=== PATIENT | male | born 1970 | race Caucasian/White ===

== ENCOUNTER 2018-10-11 12:23 | Emergency (ER) | payer SELFPAY ==
--- NOTE | 2018-10-11 13:59 | RAD REPORT ---
EXAM DESCRIPTION: CT - Head Brain Wo Cont - 10/11/2018 1:41 pm CLINICAL HISTORY: Weakness, dizziness COMPARISON: None. TECHNIQUE: Axial 5 mm thick images of the head were obtained without IV contrast. All CT scans are performed using dose optimization technique as appropriate and may include automated exposure control or mA/KV adjustment according to patient size. FINDINGS: No intracranial hemorrhage, mass, edema or shift of mid-line structures. No acute infarcti on changes seen. No abnormal extra-axial fluid collections. Ventricles are normal. Mastoid air cells and visualized portions of the paranasal sinuses are clear. No acute bony findings. IMPRESSION: Negative non-contrast CT head examination.
[2018-10-11] MEDS ORDERED: ACETAMINOPHEN 500 MG TAB ONE (14:00)
[2018-10-11 14:07] LABS: Absolute Lymphocytes (CBC) 0.9 K/uL (0.7-4.9); Absolute Monocytes 0.3 K/uL (0.1-1.3); Absolute Neutrophil 2.6 K/uL (1.8-8.0); Basophils % 0.9 % (0-1.3); Eosinophils % 2.6 % (0-4.4); MPV 9.8 fL (7.6-11.3); Monocytes % 8.5 % (3.3-12.3); RBC Red Blood Cell Count 4.17 M/uL (4.33-5.43)
--- NOTE | 2018-10-11 14:07 | RAD REPORT ---
EXAM DESCRIPTION: RAD - Chest Single View - 10/11/2018 1:55 pm CLINICAL HISTORY: Chest pain, shortness of breath COMPARISON: February 2012 TECHNIQUE: AP portable chest image was obtained 1352 hours . FINDINGS: Lung volumes are low. Patient has a mild prominence of the interstitial pattern throughout both lung schroeder. This is not substantially different from comparison. A small approximately 7 mm nodule is present in the right midlung field not seen on the prior study. This is most likely a granuloma. There is also a vague nodule lateral left lower lung field 8-10 mm i n size superimposed on the posterior left seventh rib. Heart and vasculature are normal. No measurable pleural effusion and no pneumothorax. No acute bony a bnormality seen. No acute aortic findings suspected. IMPRESSION: No failure, pulmonary edema or acute lung parenchymal process. Areas of nodularity in each lung field new from remote 2012 imaging. Follow-up chest imaging in 4-6 months recommended to monitor these areas of nodularity. If the patien t is not a good follow-up candidate, CT chest imaging could be performed.
[2018-10-11 14:09] LABS: Protime INR 1.19
--- NOTE | 2018-10-11 14:20 | EKG ---
Test Date: 2018-10-11 Test Time: 12:43:46 Piece Dyeing Machine Tender: NEVAEH MEASUREMENT RESULTS: Intervals: Rate: 61 DE: 142 QRSD: 106 QT: 432 QTc: 434 [place]: P: 41 DE: 142 QRS: 62 T: 34 INTERPRETIVE STATEMENTS: Normal sinus rhythm Normal ECG Compared to ECG 03/11/2012 15:10:00 No significant changes Electronically Signed On 10-11-18 14:19:03 CDT by Brent Hernandez
[2018-10-11 14:24] LABS: ALT/SGPT 149 U/L (12-78); AST/SGOT 177 U/L (15-37); Albumin 3.6 g/dL (3.4-5.0); Alkaline Phosphatase 104 U/L (45-117); BUN Blood Urea Nitrogen 13 mg/dL (7-18); Bicarbonate 27 mmol/L (21-32); Bilirubin Direct 0.3 mg/dL (0-0.2); Glucose Level 89 mg/dL (74-106); Magnesium 2.1 mg/dL (1.8-2.4); Protein, Total 7.7 g/dL (6.4-8.2); Sodium Level 144 mmol/L (136-145); Troponin (Emerg Dept Use Only) < 0.02 ng/mL (0.0-0.045)
--- NOTE | 2018-10-11 15:45 | ER ---
Nurse's Notes [facility] Name: Dennis Nova Age: 48 yrs Sex: Male : 1970 Arrival Date: 10/11/2018 Time: 12:37 Bed 13 Private MD: Diagnosis: Chest pain, unspecified;Dizziness and giddiness;Suicidal ideations Presentation: 10/11 12:37 Presenting complaint: EMS states: He ran from and when caught he was c/o chest pain jl7 and dizziness that began 4 days ago. Pt reported he wants to hurt himself starting 30 minutes prior to EMS arrival. Transition of care: patient was not received from another setting of care. Onset of symptoms was October 06, 2018. Risk Assessment: Do you want to hurt yourself or someone else? Patient reports desire/thoughts of hurting themselves or someone else. Provider notified. Other: PD at bedside. Initial Sepsis Screen: Does the patient meet any 2 criteria? No. Patient's initial sepsis screen is negative. Does the patient have a suspected source of infection? No. Patient's initial sepsis screen is negative. Care prior to arrival: Medication(s) given: ASA, 81 mg, x 4. 12:37 Method Of Arrival: EMS: [facility] jl7 12:37 Acuity: VINH 3 jl7 Triage Assessment: 12:43 General: Appears in no apparent distress. uncomfortable, Behavior is cooperative, jl7 anxious. Pain: Complains of pain in anterior aspect of left upper chest Pain does not radiate. Pain currently is 7 out of 10 on a pain scale. Quality of pain is described as aching, Pain began 2-3 days ago. Is continuous. EENT: No signs and/or symptoms were reported regarding the EENT system. Neuro: Level of Consciousness is awake, alert, obeys commands, Oriented to person, place, time, situation, Moves all extremities. Full function Speech is normal, Facial symmetry appears normal, Pupils are constricted, Reports dizziness, since x 4days. Cardiovascular: Patient's skin is warm and dry. Respiratory: Airway is patent Respiratory effort is even, unlabored, Respiratory pattern is regular, symmetrical. Derm: Skin is pink, warm \T\ dry. Historical: - Allergies: 12:43 No Known Allergies; jl7 - Home Meds: 12:43 None [Active]; jl7 - PMHx: 12:43 Hepatitis; jl7 - PSHx: 12:43 None; jl7 - Immunization history:: Adult Immunizations unknown. - Social history:: Smoking status: Patient uses tobacco products, smokes one-half pack cigarettes per day, Patient uses street drugs, Methamphetamine (Meth). - Ebola Screening: : No symptoms or risks identified at this time. - Family history:: not pertinent. - Hospitalizations: : No recent hospitalization is reported. Screenin:00 Abuse screen: Denies threats or abuse. Denies injuries from another. Nutritional jl7 screening: No deficits noted. Tuberculosis screening: No symptoms or risk factors identified. Fall Risk IV access (20 points). Assessment: 13:00 General: See triage assessment. jl7 14:00 Reassessment: Patient appears in no apparent distress at this time. Patient and/or jl7 family updated on plan of care and expected duration. Pain level reassessed. Patient is alert, oriented x 3, equal unlabored respirations, skin warm/dry/pink. 15:00 Reassessment: Patient appears in no apparent distress at this time. Patient and/or jl7 family updated on plan of care and expected duration. Pain level reassessed. Pt laying in bed with eyes closed, respirations even and unlabored, no signs of distress noted at this time. PD remains at bedside. Vital Signs: 12:43 BP 134 / 83; Pulse 75; Resp 18 S; Temp 97.6(O); Pulse Ox 99% on R/A; Weight 79.38 kg jl7 (R); Pain 7/10; 14:00 BP 138 / 91; Pulse 55; Resp 16 S; Pulse Ox 100% on R/A; jl7 15:38 BP 129 / 85; Pulse 57; Resp 19 S; Pulse Ox 99% on R/A; jl7 ED Course: 12:37 Patient arrived in ED. jl7 12:42 Triage completed. jl7 12:43 Arm band placed on right wrist. jl7 12:48 Huan Jarvis MD is Attending Physician. ny 13:00 Patient has correct armband on for positive identification. Bed in low position. Call jl7 light in reach. Side rails up X2. Security at bedside. alarm security or surveillance monitor on. Pulse ox on. NIBP on. Warm blanket given. 13:00 Maintain EMS IV. Dressing intact. Good blood return noted. Site clean \T\ dry. Gauge \T\ jl 7 site: 18 right AC. Patient maintains SpO2 saturation greater than 95% on room air. 13:02 EKG done, by optical lab technician. reviewed by Huan Jarvis MD. at1 13:36 Fabian Payne RN is Primary Nurse. jl7 13:41 CT Head Brain wo Cont In Process Unspecified. EDMS 13:55 X-ray completed. Portable x-ray completed in exam room. Patient tolerated procedure ls3 well. 13:56 XRAY Chest (1 view) In Process Unspecified. EDMS 15:44 Brent Hernandez MD is Referral Physician. wa 16:07 No provider procedures requiring assistance completed. IV discontinued, intact, jl7 bleeding controlled, No redness/swelling at site. Pressure dressing applied. Administered Medications: 13:40 Drug: Tylenol 1000 mg Route: PO; jl7 15:44 Follow up: Response: No adverse reaction; Pain is decreased jl7 Outcome: 15:44 Discharge ordered by . wa 16:07 Discharged to home ambulatory. jl7 16:07 Condition: stable 16:07 Discharge instructions given to patient, police, Instructed on discharge instructions, follow up and referral plans. Demonstrated understanding of instructions, follow-up care. 16:10 Patient left the ED. jl7 Signatures: Dispatcher [employer] EDEliana Fox, lift slab operator EKG Tat1 Fabian Payne RN RN jl7 Huan Jarvis MD MD ny Avril Caballero ls3
--- NOTE | 2018-10-11 15:45 | EDPHYS ---
Physician Documentation [facility] Name: Dennis Nova Age: 48 yrs Sex: Male : 1970 Arrival Date: 10/11/2018 Time: 12:37 Bed 13 Private MD: ED Physician Huan Jarvis HPI: 10/11 15:30 This 48 yrs old Male presents to ER via EMS with complaints of Chest Pain > wa 30 y/o. 15:30 The patient or guardian reports chest pain that is located primarily in the substernal wa area. Onset: 5 day(s) ago. The pain does not radiate. Associated signs and symptoms: Pertinent positives: dizziness. The chest pain is described as sticky pins and needles. Duration: The patient or guardian reports a single episode, that is still ongoing. Modifying factors: The symptoms are alleviated by nothing. the symptoms are aggravated by nothing. Severity of pain: At its worst the pain was moderate in the emergency department the pain is unchanged. EMS care prior to arrival includes: none. The patient has not experienced similar symptoms in the past. The patient has not recently seen a physician. pt was chased and arrested by EMS. pt c/o above at time of arrest. . Historical: - Allergies: 12:43 No Known Allergies; jl7 - Home Meds: 12:43 None [Active]; jl7 - PMHx: 12:43 Hepatitis; jl7 - PSHx: 12:43 None; jl7 - Immunization history:: Adult Immunizations unknown. - Social history:: Smoking status: Patient uses tobacco products, smokes one-half pack cigarettes per day, Patient uses street drugs, Methamphetamine (Meth). - Ebola Screening: : No symptoms or risks identified at this time. - Family history:: not pertinent. - Hospitalizations: : No recent hospitalization is reported. ROS: 15:34 Constitutional: Negative for fever, chills, and weight loss, Eyes: Negative for injury, wa pain, redness, and discharge, ENT: Negative for injury, pain, and discharge, Neck: Negative for injury, pain, and swelling, Respiratory: Negative for shortness of breath, cough, wheezing, and pleuritic chest pain, Abdomen/GI: Negative for abdominal pain, nausea, vomiting, diarrhea, and constipation, Back: Negative for injury and pain, : Negative for injury, bleeding, discharge, and swelling, MS/Extremity: Negative for injury and deformity, Skin: Negative for injury, rash, and discoloration. 15:34 Cardiovascular: Positive for chest pain, Negative for edema, orthopnea, palpitations, paroxysmal nocturnal dyspnea. 15:34 Neuro: Positive for dizziness, Negative for altered mental status, headache. 15:34 Psych: Positive for suicidal ideation. 15:34 All other systems are negative. Exam: 15:35 Constitutional: This is a well developed, well nourished patient who is awake, alert, wa and in no acute distress. Eyes: Pupils equal round and reactive to light, extra-ocular motions intact. Lids and lashes normal. Conjunctiva and sclera are non-icteric and not injected. Cornea within normal limits. Periorbital areas with no swelling, redness, or edema. ENT: Nares patent. No nasal discharge, no septal abnormalities noted. Tympanic membranes are normal and external auditory canals are clear. Oropharynx with no redness, swelling, or masses, exudates, or evidence of obstruction, uvula midline. Mucous membranes moist. Neck: Trachea midline, no thyromegaly or masses palpated, and no cervical lymphadenopathy. Supple, full range of motion without nuchal rigidity, or vertebral point tenderness. No Meningismus. Chest/axilla: Normal chest wall appearance and motion. Nontender with no deformity. No lesions are appreciated. Cardiovascular: Regular rate and rhythm with a normal S1 and S2. No gallops, murmurs, or rubs. Normal PMI, no JVD. No pulse deficits. Respiratory: Lungs have equal breath sounds bilaterally, clear to auscultation and percussion. No rales, rhonchi or wheezes noted. No increased work of breathing, no retractions or nasal flaring. Abdomen/GI: Soft, non-tender, with normal bowel sounds. No distension or tympany. No guarding or rebound. No evidence of tenderness throughout. Back: No spinal tenderness. No costovertebral tenderness. Full range of motion. Skin: Warm, dry with normal turgor. Normal color with no rashes, no lesions, and no evidence of cellulitis. MS/ Extremity: Pulses equal, no cyanosis. Neurovascular intact. Full, normal range of motion. Neuro: Awake and alert, GCS 15, oriented to person, place, time, and situation. Cranial nerves II-XII grossly intact. Motor strength 5/5 in all extremities. Sensory grossly intact. Cerebellar exam normal. Normal gait. 15:35 Head/face: Noted is abrasion(s), that are mild, of the outer aspect of right eyebrow. Vital Signs: 12:43 BP 134 / 83; Pulse 75; Resp 18 S; Temp 97.6(O); Pulse Ox 99% on R/A; Weight 79.38 kg jl7 (R); Pain 7/10; 14:00 BP 138 / 91; Pulse 55; Resp 16 S; Pulse Ox 100% on R/A; jl7 15:38 BP 129 / 85; Pulse 57; Resp 19 S; Pulse Ox 99% on R/A; jl7 MDM: 12:48 Patient medically screened. ar 15:36 Differential diagnosis: pt was tackled. no LOC. c/o dizziness, onset prior to today. wa will check head CT. will do cardiac work up and reassess. will discuss SI with giving officer with his case. Data reviewed: vital signs, nurses notes. 15:38 Test interpretation: by ED physician or midlevel provider: EKG: interp by me: HR 61. ar labs noted consistent with liver dz. wbc low at 4.1 low platelet at 117. elevated AST and ALT at 177 and 149 respectively. elevated PT at 14.0. CXR: noted for 2 nodules new from last CXR for 2011. 7mm R mid lung. 8-10 mm L lower lung. . 15:40 Test interpretation: by ED physician or midlevel provider: head CT no acute process. . ar 15:41 ED course: in the setting of CP on-going x several days with nml EKG and troponins. ar HEART score low. will d/c with f/u. pt in custody. SI has been on-going intermittently x 3 weeks per pt. pt arrest officer aware. . 10/11 13:11 Order name: Basic Metabolic Panel; Complete Time: 14:26 10/11 13:11 Order name: CBC with Diff; Complete Time: 14:26 10/11 13:11 Order name: LFT's; Complete Time: 14:27 10/11 13:11 Order name: Magnesium; Complete Time: 14:28 10/11 13:11 Order name: PT-INR; Complete Time: 14:27 ar 10/11 13:11 Order name: Troponin (emerg Dept Use Only); Complete Time: 14:28 10/11 13:10 Order name: CT Head Brain wo Cont; Complete Time: 14:27 ar 10/11 13:11 Order name: XRAY Chest (1 view); Complete Time: 14:28 ar 10/11 13:11 Order name: EKG; Complete Time: 13:13 10/11 13:11 Order name: Cardiac monitoring; Complete Time: 13:37 10/11 13:11 Order name: EKG - Nurse/Tech; Complete Time: 13:37 10/11 13:11 Order name: IV Saline Lock; Complete Time: 13:37 10/11 13:11 Order name: Labs collected and sent; Complete Time: 15:34 ar 10/11 13:11 Order name: O2 Per Protocol; Complete Time: 13:36 ar 10/11 13:11 Order name: O2 Sat Monitoring; Complete Time: 13:36 ar Administered Medications: 13:40 Drug: Tylenol 1000 mg Route: PO; jl7 15:44 Follow up: Response: No adverse reaction; Pain is decreased jl7 Disposition: 10/11/18 15:44 Discharged to Home. Impression: Chest pain, unspecified, Dizziness and giddiness, Suicidal ideations. - Condition is Stable. - Discharge Instructions: Nonspecific Chest Pain, Dizziness, Suicidal Feelings: How to Help Yourself. - Medication Reconciliation Form, Thank You Letter, Antibiotic Education, Prescription Opioid Use form. - Follow up: Brent Hernandez MD; When: 2 - 3 days; Reason: Recheck today's complaints. - Problem is new. - Symptoms have improved. - Notes: return to ER if worsening chest pain or you develop shortness of breath. follow up with the heart doctor for further evaluation otherwise Signatures: Dispatcher [employer] Fabian Bonilla RN RN jl7 Huan Jarvis MD MD ar Corrections: (The following items were deleted from the chart) 16:10 15:44 10/11/2018 15:44 Discharged to Home. Impression: Chest pain, unspecified; jl7 Dizziness and giddiness; Suicidal ideations. Condition is Stable. Forms are Medication Reconciliation Form, Thank You Letter, Antibiotic Education, Prescription Opioid Use. Follow up: Brent Hernandez; When: 2 - 3 days; Reason: Recheck today's complaints. Problem is new. Symptoms have improved. wa
[2018-10-11 16:25] VITALS: TEMP 97.6
[2018-10-11 16:27] VITALS: BP 129/85; O2SAT 99
== END 2018-10-11 16:10 | disposition home or self-care (01) ==
LOC: ER 12:23
DX: R07.9 Chest pain, unspecified (principal); R42 Dizziness and giddiness; R45.851 Suicidal ideations; F17.210 Nicotine dependence, cigarettes, uncomplicated
CPT/HCPCS: 36415; 70450; 71045; 80048; 80076; 83735; 84484; 85025; 85610; 93005; 99285

== ENCOUNTER 2023-08-14 14:45 | Observation (INO) | payer OTHER ==
--- OUTSIDE RECORDS SUMMARY | 2023-08-14 14:48 | XMS REPORT | Continuity of Care Document ---
Author Name Unknown Address [address] [facility] [place] [address] [facility] thconnect Address [address] [facility] [place] [address] Care Team Providers Care C 40A Crew Chief Name Role Phone DANAY BARAJAS Attending Clinician Unavailable SKYLER LUNA Attending Clinician Unavailable ABRAN LIND Attending Clinician UnavailJONAH Braun Attending Clinician UnaGAMALIEL Jerez Attending Clinician Unavailab GUILLAUME Anna Attending Clinician Unavailable MD ADELA Attending Clinician Unavailab LACHELLE Minor Attending Clinician Unavailable SISSON_[place] Attending Clinician Unavailable SIA JESUS Attending Clinician Unavailable MORGAN JARRELL Attending Clinician Unavailable SISSON_C Admitting Clinician Unavailable Payers Payer Name Policy Type Policy Number Effective Date Expirati on Date Source AETNA MP [facility] [facility] NOVELTY MAKER 94 ON 9 [id number] 2023 00:00:00 AETNA ([facility]) [id number] 2023 00:00:00 AETNA [facility] [id number] 2023 00:00:00 Problems Condition Name Condition Details Condition Category Status Onset Date Resolution Date Last Treatment Date Treating Clinician Comments Source Edema of both lower extremitie s Edema of both lower extremitie s Disease Active - 00:00: 00 Joyce pacheco Immunodefi 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 (multi 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) Disease Active - 00:00: 00 Joyce pacheco History of hepatitis C History of hepatitis C Disease Active 2022-06 00:00: 00 Joyce pacheco Liver cirrhosis (multi HCC) Liver cirrhosis (multi HCC) Disease Active 2022-06 00:00: 00 Joyce pacheco History of alcohol abuse History of alcohol abuse Disease Active 2022-06 00:00: 00 Joyce pacheco History of hepatitis B History of hepatitis B Disease Active 2022-06 00:00: 00 Joyce pacheco Drug abuse, amphetamin e type Drug abuse, amphetamin e type Disease Active 2022-06 00:00: 00 Joyce pacheco Social History Social Habit Start Date Stop Date Quantity Comments Source Sexual orientation Dexter Smith - External History of tobacco use Cigarette Smoker Joyce sam - External Cigarettes smoked current (pack per day) - Reported 2023-07-21 00:00:00 2023-07-21 00:00:00 Joyce Smith - External Tobacco use and exposure 2023-07-21 00:00:00 2023-07-21 00:00:00 Smokeless tobacco non-user Joyce Smith - [place] Cigarette pack-years 2023-07-21 00:00:00 2023-07-21 00:00:00 Joyce Smith - External Alcohol intake 2023-07-21 00:00:00 2023-07-21 00:00:00 Ex-drinker (finding) Joyce Smith - External Alcohol Comment 2023-06-16 00:00:00 2023-06-16 00:00:00 Sober since 2012. He was a heavy drinker in the past. Joyce Smtih - External History of Social function 2023-06-16 00:00:00 2023-06-16 00:00:00 Joyce Smith - External Education - What is the highest level of school you have completed or the highest degree you have received? 2023-06-16 00:00:00 2023-06-16 00:00:00 GED or equivalent Joyce Smith - External Sex Ass[birth year] At 1970 00:00:00 1970 00:00:00 Joyce Smith - External Smoking Status Start Date Stop Date Source Smokes tobacco daily 2023-07-21 00:00:00 Joyce Smith - External Medications Ordered Medication Name Filled Medication Name Start Date Stop Date Current Medication? Ordering Clinician Indication Dosage Frequency Signature (SIG) Comments Components Source Furosemide (Lasix) 40 MG oral Tablet 06-26 00:00: 00 Yes [id number] 40mg Take 1 tablet (40 mg total) by mouth daily. Joyce Smith - Externa l Furosemide (Lasix) 40 MG oral Tablet 06-26 00:00: 00 Yes [id number] 40mg Take 1 tablet (40 mg total) by mouth daily. Joyce Smith - Externa l Furosemide (Lasix) 40 MG oral Tablet 06-26 00:00: 00 Yes [id number] 40mg Take 1 tablet (40 mg total) by mouth daily. Joyce Smith - Externa l Immunizations Ordered Immunization Name Filled Immunization Name Date Status Comments Source Covid-19 Vaccine Moderna (Spikevax), Mrna-lnp, Pillo Protein, Pf Unknown Completed Joyce Smith - External Covid-19 Vaccine Moderna (Spikevax), Mrna-lnp, Pillo Protein, Pf Unknown Completed Joyce Smith - External Covid-19 Vaccine Moderna (Spikevax), Mrna-lnp, Pillo Protein, Pf Unknown Completed Joyce Smith - External Covid-19 Vaccine Moderna (Spikevax), Mrna-lnp, Pillo Protein, Pf Unknown Completed Joyce Smith - External Vital Signs Vital Name Observation Time Observation Value Comments S ource Systolic blood pressure 2023-07-21 15:25:00 117 mm[Hg] Joyce Bowers ld - External Diastolic blood pressure 2023-07-21 15:25:00 70 mm[Hg] Joyce stanton - External Heart rate 2023-07-21 15:03:00 78 /min Rahat Smith - External Body temperature 2023-07-21 15:03:00 35.83 Lisa Joyce Smith - External Respiratory rate 2023-07-21 15:03:00 20 /min Joyce Smith - External Body height 2023-07-21 15:03:00 172.7 cm Tyra ey Seybold - External Body weight 2023-07-21 15:03:00 85.73 kg Tyra ey Seybold - External BMI 2023-07-21 15:03:00 28.74 kg/m2 Tyra ey Seybold - External Oxygen saturation in Arterial blood by Pulse oximetry 2023-07-21 15:03:00 99 /min Joyce Seybo ld - External Body height 2023-06-30 20:27:00 172.7 cm Tyra ey Seybold - External Body weight 2023-06-30 20:27:00 86.183 kg Tyra ey Seybold - External BMI 2023-06-30 20:27:00 28.89 kg/m2 Tyra ey Seybold - External Systolic blood pressure 2023-06-16 17:07:00 133 mm[Hg] Joyce Seybo ld - External Diastolic blood pressure 2023-06-16 17:07:00 50 mm[Hg] Joyce Seybo ld - External Heart rate 2023-06-16 17:07:00 86 /min Fadise y Seybold - External Body temperature 2023-06-16 17:07:00 35.94 Lisa Joyce Seybold - External Respiratory rate 2023-06-16 17:07:00 20 /min Joyce Seybold - External Body height 2023-06-16 17:07:00 172.7 cm Tyra ey Seybold - External Body weight 2023-06-16 17:07:00 86.183 kg Tyra ey Seybold - External BMI 2023-06-16 17:07:00 28.89 kg/m2 Tyra ey Seybold - External Encounters Start Date/Time End Date/Time Encounter Type Admission Type Attending [facility] Care Department Encounter ID Source 2023-10-20 09:00:00 2023-10-20 09:00:00 Outpatient DANAY BARAJAS [id number] Joyce Smith 2023-08-24 08:00:00 2023-08-24 08:00:00 Outpatient SKYLER LUNA [id number] Joyce Smith 2023-08-17 15:45:00 2023-08-17 15:45:00 Outpatient SKYLER LUNA [id number] Joyce Seybold 2023-08-14 13:30:00 2023-08-14 13:30:00 Outpatient ABRAN LIND JOYCE DRAKE [id number] Joyce Seybold 2023-08-13 16:15:00 2023-08-13 16:15:00 Outpatient PREZAS, DANAY JOYCE DRAKE [id number] Joyce Seybold 2023-08-13 15:30:00 2023-08-13 15:30:00 Outpatient JONAH CAMARA OJYCE DRAKE [id number] Joyce Seybold 2023-08-13 14:30:00 2023-08-13 14:30:00 Outpatient GAMALIEL NUNN JOYCE DRAKE [id number] Joyce Seybold 2023-08-04 00:00:00 2023-08-04 00:00:00 Outpatient PREZAS, DANAY JOYCE DRAKE [id number] Joyce Seybold 2023-07-30 11:00:00 2023-07-30 11:00:00 Outpatient FLORIGUILLAUME JOYCE DRAKE [id number] Joyce Seybold 2023-07-30 00:00:00 2023-07-30 00:00:00 Outpatient PREZAS, DANAY JOYCE DRAKE [id number] Joyce Seybold 2023-07-22 00:00:00 2023-07-22 00:00:00 Outpatient PREZAS, DANAY JOYCE DRAKE [id number] Joyce Seybold 2023-07-21 09:15:00 2023-07-21 09:15:00 Outpatient PREZAS, DANAY JOYCE DRAKE [id number] Joyce Seybold 2023-07-21 00:00:00 2023-07-21 00:00:00 Outpatient JOYCE DRAKE [id number] Joyce Seybold 2023-07-08 00:00:00 2023-07-08 00:00:00 Outpatient JOYCE DRAKE [id number] Joyce Seybold 2023-07-07 00:00:00 2023-07-07 00:00:00 Outpatient JOYCE DRAKE [id number] Joyce Seybold 2023-07-07 00:00:00 2023-07-07 00:00:00 Outpatient MD [facility] [id number] [facility] 00:00:00 2023-07-06 00:00:00 Outpatient DANAY BARAJAS [facility] DRAKE [id number] [facility]23-[facility]-06 00:00:00 2023-07-06 00:00:00 Outpatient MD JOYCE SAMS [id number] [facility] 2023-06-30 14:20:00 2023-06-30 14:20:00 Outpatient LACHELLE SAUCEDA JOYCE DRAKE [id number] [facility] 2023-06-26 00:00:00 2023-06-26 00:00:00 Outpatient PREZADANAY Huggins JOYCE DRAKE [id number] [facility] 2023-06-26 00:00:00 2023-06-26 00:00:00 Outpatient PREZADANAY Huggins JOYCE DRAKE [id number] [facility] 2023-06-19 00:00:00 2023-06-19 00:00:00 Outpatient PREZASDANAY JOYCE DRAKE [id number] [facility] 2023-06-19 00:00:00 2023-06-19 00:00:00 Outpatient PREDANAY CID JOYCE DRAKE [id number] [facility] 2023-06-16 11:15:00 2023-06-16 11:15:00 Outpatient PREZADANAY Huggins JOYCE DRAKE [id number] [facility] 2023-06-10 00:00:00 2023-06-10 00:00:00 Outpatient SISSON_C [facility] [id number] [place] [facility] 2023-03-26 13:54:00 2023-03-26 21:54:00 Emergency SIA [facility] [id number] [facility] 2023-03-26 16:54:08 2023-03-26 19:57:[address] [facility] [id number] [facility] 2023-03-17 08:52:00 2023-03-17 13:04:00 Emergency 1 MORGAN JARRELL [facility] [id number] [facility] 2023-03-17 09:37:38 2023-03-17 09:58:[address] [facility] [id number] [facility] Results Test Description Test Time Test Comments Results Result Co mments Source HHSHBV surface Ag SerPl Ql [id number] 19:34:05* Test Item Value Reference Range Interpretation Comme nts HBV surface Ag SerPl Ql Cfm (test code = 66564-8) Confirmed Positive Refer to result values A HHSHIV 1+2 Ab+HIV1 p24 Ag SerPl Ql [id number] 10:16:40* Test Item Value Reference Range Interpretation Comme nts HIV 1+2 Ab+HIV1 p24 Ag SerPl Ql IA (test code = 44686-2) NEGATIVE Negative [facility] Notes Date/Time Note Provider Source 2023-06-16 11:10:51 [id number] T11:10:51 Chief ComplaintPatient presents withNew PatientMemory Loss06/12/23 89246-3Fncul RaqaFC3514-83-78U48:12:45Nurse [id number]. [id number] for patient qrbr77652-1Qumtu NoteLNNARRATIVEFormatted C-CDA narrative textHospital Sisters Health System [facility] [place], [place] [id number] [id number]:12:[id number] 2.3.15|[id number]. [id number] [facility]"
[2023-08-14 15:24] LABS: Absolute Lymphocytes (CBC) 0.8 K/uL (0.7-4.9); Hematocrit 32.8 % (39.6-49.0); Lymphocytes % 8.6 % (15.3-44.8); MCV 99.3 fL (80-100); MPV 8.6 fL (7.6-11.3); Platelets 91 thou/uL (152-406)
[2023-08-14 15:28] LABS: Protime INR 1.58
--- NOTE | 2023-08-14 15:52 | RAD REPORT ---
EXAM DESCRIPTION: US - Extrem Venous W Compress Filemon - 08/14/2023 3:31 pm CLINICAL HISTORY: Swelling COMPARISON: None. TECHNIQUE: Real-time sonographic evaluation of the bilateral lower extremity deep venous systems was performed. FINDINGS: Normal compressibility, flow augmentation, phasic flow and spontaneous flow is identified in both the left and right lower extremity deep venous systems. No intraluminal filling defects seen. Subcutaneous edema in the lower leg. IMPRESSION: No evidence of DVT in either lower extremity.
[2023-08-14 15:53] LABS: Bilirubin Direct 0.4 mg/dL (0-0.2); Bilirubin Indirect, Calculated 0.6 mg/dL (0.2-0.8); Potassium 3.2 mEq/L (3.5-5.1); Protein, Total 6.2 g/dL (6.4-8.2); Troponin High Sensitivity 5.5 pg/mL (<58.9)
[2023-08-14 15:57] LABS: Blood Morphology Comment NOT SEEN (NOT SEEN); Platelet Estimate DECR; White Blood Cell Scan OK (OK)
--- NOTE | 2023-08-14 16:03 | RAD REPORT ---
EXAM DESCRIPTION: Havent Single View08/14/2023 3:17 pm CLINICAL HISTORY: DYSPNEA COMPARISON: Chest Single View dated 10/11/2018; CHEST SINGLE VIEW dated 03/11/2012; ABDOMEN ACUTE SERI ES dated 01/07/2007 TECHNIQUE: Portable AP view of the chest. FINDINGS: The lungs are clear. No pneumothorax or effusion. The cardiomediastinal contours are unre markable. IMPRESSION: No acute cardiopulmonary process.
--- NOTE | 2023-08-14 16:31 | EDPHYS ---
Physician Documentation [facility] Name: Dennis Nova Age: 53 yrs Sex: Male : 1970 Arrival Date: 08/14/2023 Time: 14:45 Bed 15 Private MD: Spike Thurman ED Physician Kadeem Sharp HPI: 08/14 15:16 This 53 yrs old Unknown Male presents to ER via Ambulatory with complaints of Leg rn Swelling. 15:16 Patient reports 1 week of worsening swelling of bilateral legs. Associated with mild rn shortness of breath. No fever or chills. Patient reports has cirrhosis. Has been taking Lasix 40 mg once a day directed by . Presents to command for more aggressive diuresis. Denies abdominal pain. Has never had to be admitted to hospital for diuresis.. Onset: The symptoms/episode began/occurred 1 week(s) ago. Severity of symptoms: At their worst the symptoms were moderate in the emergency department the symptoms are unchanged. The patient has experienced similar episodes in the past. The patient has been recently seen by a physician:. Historical: - Allergies: 14:54 No Known Allergies; ll1 - PMHx: 14:54 Hepatitis; ll1 - PSHx: 14:54 None; ll1 - Immunization history:: Adult Immunizations up to date. - Social history:: Smoking status: Patient reports the use of cigarette tobacco products, denies chronic smoking, but will smoke occasionally, Reported history of juuling and/or vaping. - Family history:: not pertinent. - Hospitalizations: : No recent hospitalization is reported. ROS: 15:16 Constitutional: Negative for fever, chills, and weight loss, Cardiovascular: Negative rn for chest pain, palpitations Respiratory: Negative for shortness of breath, cough, wheezing, and pleuritic chest pain, Abdomen/GI: Negative for abdominal pain, nausea, vomiting, diarrhea, and constipation, MS/Extremity: Negative for injury and deformity, Skin: Negative for injury, rash, and discoloration, Neuro: Negative for headache, weakness, numbness, tingling, and seizure, Exam: 15:16 Constitutional: This is a well developed, well nourished patient who is awake, alert, rn and in no acute distress. Cardiovascular: Regular rate and rhythm. No pulse deficits. Respiratory: Speaking full sentences, unlabored. No increased work of breathing, no retractions or nasal flaring. Abdomen/GI: Soft, non-tender MS/ Extremity: Pulses equal, no cyanosis. Neurovascular intact. Full, normal range of motion. Equal circumference. 3+ pitting edema to bilateral proximal thighs Neuro: Awake and alert, GCS 15 16:42 ECG was reviewed by the Attending Physician. rn Vital Signs: 14:53 BP 136 / 61; Pulse 91; Resp 18; Temp 98.7; Pulse Ox 100% ; Weight 90.72 kg; Height 5 ll1 ft. 8 in. ; Pain 10/10; 15:45 BP 133 / 76; Pulse 77; Resp 13; Pulse Ox 100% ; cm10 16:00 BP 142 / 86; Pulse 76; Resp 14; Pulse Ox 100% on R/A; cm10 16:30 BP 138 / 76; Pulse 80; Resp 14; Pulse Ox 100% ; cm10 17:00 BP 129 / 78; Pulse 82; Resp 14; Pulse Ox 100% ; cm10 17:15 BP 130 / 79; Pulse 81; Resp 16; Pulse Ox 100% on R/A; cm10 19:05 BP 135 / 79; Pulse 79; Resp 17 S; Temp 98.1; Pulse Ox 100% ; ha1 20:15 BP 133 / 77; Pulse 84; Resp 17 S; Pulse Ox 100% on R/A; ha1 14:53 Body Mass Index 30.41 (90.72 kg, 172.72 cm) ll1 14:53 Pain Scale: Adult ll1 MDM: 14:51 Patient medically screened. rn 16:30 Differential Diagnosis Anasarca, cirrhosis, volume overload, renal failure. Data rn reviewed: vital signs, nurses notes, lab test result(s), radiologic studies, plain films, and as a result, I will admit patient. Consideration of Admission/Observation Patient was admitted/placed on observation. Escalation of care including admission/observation considered. Counseling: I had a detailed discussion with the patient and/or guardian regarding the historical points, exam findings, and any diagnostic results supporting the discharge/admit diagnosis, lab results, radiology results, the need for further work-up and treatment in the hospital. 08/14 14:57 Order name: Basic Metabolic Panel; Complete Time: 16:08 rn 08/14 14:57 Order name: CBC with Diff; Complete Time: 16:08 rn 08/14 14:57 Order name: LFT's; Complete Time: 16:08 rn 08/14 14:57 Order name: NT PRO-BNP; Complete Time: 16:08 rn 08/14 14:57 Order name: PT-INR; Complete Time: 16:08 rn 08/14 14:57 Order name: Troponin HS; Complete Time: 16:08 rn 08/14 15:58 Order name: CBC Smear Scan; Complete Time: 16:08 EDMS 08/14 18:20 Order name: CBC with Automated Diff EDMS 08/14 18:20 Order name: CBC with Automated Diff EDMS 08/14 18:20 Order name: CBC with Automated Diff EDMS 08/14 18:20 Order name: CBC with Automated Diff EDMS 08/14 18:20 Order name: CBC with Automated Diff EDMS 08/14 18:20 Order name: CBC with Automated Diff EDMS 08/14 18:20 Order name: CBC with Automated Diff EDMS 08/14 18:20 Order name: CBC with Automated Diff EDMS 08/14 18:20 Order name: Comprehensive Metabolic Panel EDMS 08/14 18:20 Order name: Comprehensive Metabolic Panel EDMS 08/14 18:20 Order name: Comprehensive Metabolic Panel EDMS 08/14 18:20 Order name: Comprehensive Metabolic Panel EDMS 08/14 18:20 Order name: Comprehensive Metabolic Panel EDMS 08/14 18:20 Order name: Comprehensive Metabolic Panel EDMS 08/14 18:20 Order name: Comprehensive Metabolic Panel EDMS 08/14 18:20 Order name: Comprehensive Metabolic Panel EDMS 08/14 18:20 Order name: Lipid Profile EDMS 08/14 18:20 Order name: Lipid Profile EDMS 08/14 18:20 Order name: Magnesium EDMS 08/14 18:20 Order name: Magnesium EDMS 08/14 18:20 Order name: Magnesium EDMS 08/14 18:20 Order name: Magnesium EDMS 08/14 18:20 Order name: Magnesium EDMS 08/14 18:20 Order name: Magnesium EDMS 08/14 18:20 Order name: Magnesium EDMS 08/14 18:20 Order name: Magnesium EDMS 08/14 18:20 Order name: Phosphorus EDMS 08/14 18:20 Order name: Phosphorus EDMS 08/14 18:20 Order name: Phosphorus EDMS 08/14 18:20 Order name: Phosphorus EDMS 08/14 18:20 Order name: Phosphorus EDMS 08/14 18:20 Order name: Phosphorus EDMS 08/14 18:20 Order name: Phosphorus EDMS 08/14 18:20 Order name: Phosphorus EDMS 08/14 18:20 Order name: Troponin High Sensitivity EDMS 08/14 18:20 Order name: Troponin High Sensitivity EDMS 08/14 18:20 Order name: Troponin High Sensitivity EDMS 08/14 20:28 Order name: Urine Drug Screen EDNH 08/14 14:57 Order name: XRAY Chest (1 view); Complete Time: 16:08 rn 08/14 14:57 Order name: Extrem Venous W Compression Filemon US; Complete Time: 16:08 rn 08/14 14:57 Order name: EKG; Complete Time: 14:58 rn 08/14 14:57 Order name: Cardiac monitoring; Complete Time: 15:12 rn 08/14 14:57 Order name: EKG - Nurse/Tech; Complete Time: 15:52 rn 08/14 14:57 Order name: IV Saline Lock; Complete Time: 15:12 rn 08/14 14:57 Order name: Labs collected and sent; Complete Time: 15:12 rn 08/14 14:57 Order name: O2 Per Protocol; Complete Time: 15:12 rn 08/14 14:57 Order name: O2 Sat Monitoring; Complete Time: 15:12 rn EC:42 Rate is 77 beats/min. Rhythm is regular. QRS [place] is Normal. [place] interval is normal. QRS rn interval is normal. QT interval is normal. No Q waves. T waves are Normal. No ST changes noted. Clinical impression: Normal ECG. Interpreted by me. Reviewed by me. Administered Medications: 17:24 Drug: Furosemide IVP 80 mg IVP once; give over 2 minutes Route: IVP; Site: right wrist; cm10 18:53 Follow up: Response: No adverse reaction cm10 Disposition Summary: 08/14/23 21:42 Eloped Notes: Disposition: post triage evaluation and consult vc1 Reason: unknown vc1 Signatures: Dispatcher [employer] EDKadeem Gramajo MD MD rn Lewis, Lynsay RN RN ll1 Stephy Mitchell RN RN vc1 Leyla Burns rv1 Celestino, Tita, RN RN cm10 Corrections: (The following items were deleted from the chart) 16:32 16:31 Sergio Shine rn rn 18:41 16:31 rn rv1 21:42 16:31 Inpatient Admission rn rv1 21:42 16:31 Telemetry/MedSurg (Inpatient) rn rv1 21:42 16:31 Stable rn rv1 21:42 16:31 an ongoing problem rn rv1 21:42 16:31 have worsened rn rv1 21:42 16:31 Standard rn rv1 :42 16:31 Anasarca rn rv1 21:42 16:31 Edema, unspecified rn rv1 21:42 16:31 Unspecified cirrhosis of liver rn rv1 21:42 16:32 Gerardo Leo rn rv1 21:42 18:41 221 rv1 rv1
--- NOTE | 2023-08-14 16:31 | ER ---
Nurse's Notes [facility] Name: Dennis Nova Age: 53 yrs Sex: Male : 1970 Arrival Date: 08/14/2023 Time: 14:45 Bed 15 Private MD: Spike Thurman Diagnosis: Presentation: 08/14 14:53 Chief complaint: Patient states: B leg swelling for 5 days. Coronavirus screen: Client ll1 denies travel out of the [place] in the last 14 days. At this time, the client does not indicate any symptoms associated with coronavirus-19. Ebola Screen: Patient denies travel to an Ebola-affected area in the 21 days before illness onset. Initial Sepsis Screen: Does the patient meet any 2 criteria? No. Patient's initial sepsis screen is negative. Does the patient have a suspected source of infection? No. Patient's initial sepsis screen is negative. Risk Assessment: Do you want to hurt yourself or someone else? Patient reports no desire to harm self or others. Onset of symptoms was August 10, 2023. 14:53 Method Of Arrival: Ambulatory [facility] 14:53 Acuity: VINH 2 1 Triage Assessment: 14:55 General: Appears uncomfortable, ill, Behavior is calm, cooperative, appropriate for 1 age. Pain: Complains of pain in right leg and left leg Pain currently is 10 out of 10 on a pain scale. Quality of pain is described as aching, throbbing. Respiratory: Reports shortness of breath. Musculoskeletal: Reports BLE swelling. Historical: - Allergies: 14:54 No Known Allergies; ll1 - PMHx: 14:54 Hepatitis; ll1 - PSHx: 14:54 None; ll1 - Immunization history:: Adult Immunizations up to date. - Social history:: Smoking status: Patient reports the use of cigarette tobacco products, denies chronic smoking, but will smoke occasionally, Reported history of juuling and/or vaping. - Family history:: not pertinent. - Hospitalizations: : No recent hospitalization is reported. Screenin:10 [facility] ED Fall Risk Assessment (Adult) History of falling in the last 3 months, cm10 including since admission No falls in past 3 months (0 pts) Confusion or Disorientation No (0 pts) Intoxicated or Sedated No (0 pts) Impaired Gait No (0 pts) Mobility Assist Device Used No (0 pt) Altered Elimination No (0 pt) Score/Fall Risk Level 0 - 2 = Low Risk Oriented to surroundings, Maintained a safe environment, Hourly rounding (assess needs \T\ fall precautionary measures) done. Abuse screen: Denies threats or abuse. Denies injuries from another. Nutritional screening: No deficits noted. Tuberculosis screening: No symptoms or risk factors identified. Assessment: 16:08 General: Appears in no apparent distress. comfortable, Behavior is calm, cooperative. cm10 Pain: Denies pain. Neuro: No deficits noted. Level of Consciousness is awake, alert, obeys commands, Oriented to person, place, time, situation. Cardiovascular: No deficits noted. Heart tones present Capillary refill < 3 seconds. Respiratory: No deficits noted. Airway is patent Respiratory effort is even, unlabored, Respiratory pattern is regular, symmetrical, Breath sounds are clear bilaterally. GI: No deficits noted. No signs and/or symptoms were reported involving the gastrointestinal system. : No deficits noted. No signs and/or symptoms were reported regarding the genitourinary system. EENT: No deficits noted. No signs and/or symptoms were reported regarding the EENT system. Musculoskeletal: Swelling present in left leg and right leg. 17:00 Reassessment: Patient appears in no apparent distress at this time. Patient and/or cm10 family updated on plan of care and expected duration. Pain level reassessed. Patient is alert, oriented x 3, equal unlabored respirations, skin warm/dry/pink. 18:05 Reassessment: Patient appears in no apparent distress at this time. Patient and/or cm10 family updated on plan of care and expected duration. Pain level reassessed. Patient is alert, oriented x 3, equal unlabored respirations, skin warm/dry/pink. 19:05 General: Appears comfortable, Behavior is calm, cooperative. Pain: Denies pain. Neuro: ha1 Level of Consciousness is awake, alert, obeys commands, Oriented to person, place, time, situation. Cardiovascular: Heart tones S1 S2 present Capillary refill < 3 seconds. Respiratory: Airway is patent Respiratory effort is even, unlabored, Respiratory pattern is regular, symmetrical. Derm: redness and swelling on the right and left lower limb. Musculoskeletal: Circulation, motion, and sensation intact. Range of motion: intact in all extremities, Swelling present in right leg, lateral aspect of left calf, left lateral ankle, lateral aspect of left foot and left person. 19:17 Reassessment: attempted to give report. ha1 19:40 Reassessment: attempted to give report. ha1 20:10 Reassessment: report given to DIANDRA Ag. ha1 20:15 Reassessment: Patient and/or family updated on plan of care and expected duration. Pain ha1 level reassessed. Patient is alert, oriented x 3, equal unlabored respirations, skin warm/dry/pink. awaiting to be transfer to room. 21:00 Reassessment: pt. not in the room. look for pt. in the bathrooms and waiting area. pt. ha1 not found. Notified Charge nurse DIANDRA Keyes. 21:31 Reassessment: administrative technician at beside to take patient upstairs, pt not in room. Searched all 1 bathrooms and lobby. Contacted next of kin to have patient call hospital. 21:36 Reassessment: Notified [place] PD patient may have left with IV in place. vc1 Vital Signs: 14:53 BP 136 / 61; Pulse 91; Resp 18; Temp 98.7; Pulse Ox 100% ; Weight 90.72 kg; Height 5 ll1 ft. 8 in. ; Pain 10/10; 15:45 BP 133 / 76; Pulse 77; Resp 13; Pulse Ox 100% ; cm10 16:00 BP 142 / 86; Pulse 76; Resp 14; Pulse Ox 100% on R/A; cm10 16:30 BP 138 / 76; Pulse 80; Resp 14; Pulse Ox 100% ; cm10 17:00 BP 129 / 78; Pulse 82; Resp 14; Pulse Ox 100% ; cm10 17:15 BP 130 / 79; Pulse 81; Resp 16; Pulse Ox 100% on R/A; cm10 19:05 BP 135 / 79; Pulse 79; Resp 17 S; Temp 98.1; Pulse Ox 100% ; ha1 20:15 BP 133 / 77; Pulse 84; Resp 17 S; Pulse Ox 100% on R/A; ha1 14:53 Body Mass Index 30.41 (90.72 kg, 172.72 cm) ll1 14:53 Pain Scale: Adult ll1 ED Course: 14:47 Patient arrived in ED. rg4 14:47 Spike Thurman DO is Private Physician. rg4 14:51 Kadeem Sharp MD is Attending Physician. rn 14:54 Triage completed. ll1 14:54 Arm band placed on. ll1 15:12 Basic Metabolic Panel Sent. mb9 15:12 CBC with Diff Sent. mb9 15:12 LFT's Sent. mb9 15:12 NT PRO-BNP Sent. mb9 15:12 PT-INR Sent. mb9 15:13 Troponin HS Sent. mb9 15:13 Inserted saline lock: 20 gauge in right forearm, using aseptic technique. mb9 15:14 Tita Tirado, DIANDRA is Primary Nurse. cm10 15:14 Patient taken to ultrasound. via wheelchair. cm10 15:19 XRAY Chest (1 view) In Process Unspecified. EDMS 15:33 Extrem Venous W Compression Filemon US In Process Unspecified. EDMS 16:10 Patient has correct armband on for positive identification. Bed in low position. Call cm10 light in reach. Side rails up X2. Provided Education on: ER process and procedures. . Client placed on continuous cardiac and pulse oximetry monitoring. NIBP monitoring applied. 16:30 Sergio Shine MD is Hospitalizing Provider. rn 16:31 Gerardo Leo is Hospitalizing Provider. rn 19:01 Report given to DIANDRA Muñoz. cm10 19:43 No provider procedures requiring assistance completed. Patient admitted, IV remains in ha1 place. Administered Medications: 17:24 Drug: Furosemide IVP 80 mg IVP once; give over 2 minutes Route: IVP; Site: right wrist; cm10 18:53 Follow up: Response: No adverse reaction cm10 Medication: 16:10 VIS not applicable for this client. cm10 Output: 20:15 Urine: 900ml (Voided); Total: 900ml. ha1 Outcome: 16:31 Decision to Hospitalize by Provider. rn 20:02 Condition: stable ha1 21:40 Eloped from patient exam room, Time discovered patient gone: August 14, 2023 at 21:00 vc1 21:42 Patient left the ED. vc1 Signatures: Dispatcher [employer] EDMS Kadeem Sharp MD MD rn Garcia, Rubi rg4 Jane Martinez RN RN 1 Stephy Mitchell RN RN 1 Wanda Ryder RN RN 1 Bridgette Ortega RN RN mb9 Tita Tirado RN RN cm10 Corrections: (The following items were deleted from the chart) 14:57 14:53 Pain 03/31, Adult; ll1 ll1
[2023-08-14] MEDS ORDERED: FUROSEMIDE 40 MG/4 ML VIAL ONE (16:38)
[2023-08-14] MEDS ORDERED: MORPHINE 2 MG/ML SYR IV PRN (18:23)
--- NOTE | 2023-08-14 18:34 | P.HP ---
Certification for Inpatient Patient admitted to: Observation With expected LOS: >2 Midnights Patient will require the following post-hospital care: None Practitioner: I am a practitioner with admitting privileges, knowledge of patient current condition, hospital course, and medical plan of care. Services: Services provided to patient in accordance with Admission requirements found in Title 42 Section 412.3 of the Code of Federal Regulations Patient History Date of Service: 08/14/23 Reason for admission: anasarca, cirrhosis History of Present Illness: Dennis Nova is a 53 year old male with Pmhx hepitis C and B, and substance abuse who presents to the ED with complaints of swollen legs and abdomen associated with back pain. He reports taking lasix daily prescribed by Dr. Thurman. He has been experiencing increased fluid accumulation in his legs and abdomen while taking the lasix and Dr. Thurman sent him to the ED. He reports using methamphetamine and smoking a "few" cigarettes. He quit drinking alcohol a few years ago. He was diagnosed with Hepatitis C and was successfully treated then was diagnosed with Hepatitis B and was recently treated. on examination, his legs are hot to the touch, tight with 4+ pitting edema, abdomen distended and tender on palpation, bowel sounds hypoactive, on RA, afebrile and hemodynamically stable. Intiial vitals: BP 136 / 61; Pulse 91; Resp 18; Temp 98.7; Pulse Ox 100% ; Weight 90.72 kg; Height 5ft. 8 in. ; Pain 10/10. Laboratory evaluation H&H , platelets 91, Na 135, potassium 3.2, serum glucose 122, calcium 7.4, T. bili 1.0, direct bili 0.4, AST 72, ALT 62, alk phos 209, total protein 6.2, albumin 2.0. Chest xray reports "The lungs are clear. No pneumothorax or effusion. The cardiomediastinal contours are unremarkable.IMPRESSION: No acute cardiopulmonary process." Bilateral Lower extremity venous US with compression reports "Normal compressibility, flow augmentation, phasic flow and spontaneous flow is identified in both the left and right lower extremity deep venous systems. No intraluminal filling defects seen. Subcutaneous edema in the lower leg. IMPRESSION: No evidence of DVT in either lower extremity." Dennis will be admitted to hospitalist service for further evaluation and treatment of anasarca. Allergies No Known Allergies Allergy (Unverified 03/11/12 11:59) Home Medications: NK [No Home Meds] 03/11/12 - Past Medical/Surgical History -: hepatitis C -: Hepatitis B -: Cirrhosis - Social History Alcohol use: Yes CD- Drugs: Yes Caffeine use: Yes Review of Systems General: Weakness Gastrointestinal: Abdominal Pain, Distention Musculoskeletal: Leg Pain (bilateral), Pedal edema, Other (BLE edema) Physical Examination - Physical Exam General: Alert, In no apparent distress, Oriented x3 HEENT: Atraumatic, Normocephalic, PERRLA Neck: Supple, 2+ carotid pulse no bruit, JVD not distended Respiratory: Clear to auscultation bilaterally, Normal air movement Cardiovascular: Normal pulses, Regular rate/rhythm, Normal S1 S2, Edema (4 + pitting edema BLE, abdomen) Capillary refill: <2 Seconds Gastrointestinal: Hypoactive, Distended Musculoskeletal: No contractures, Warmth (BLE) Neurological: Normal speech, Normal strength at 5/5 x4 extr - Studies Laboratory Data (last 24 hrs) 08/14/23 08/14/23 08/14/23 15:10 15:10 15:10 WBC 9.70 Hgb 11.6 L Hct 32.8 L Plt Count 91 L PT 17.1 H INR 1.58 Sodium 135 L Potassium 3.2 L BUN 14 Creatinine 0.86 Glucose 122 H Total Bilirubin 1.0 AST 72 H ALT 62 H Alkaline Phosphatase 209 H Assessment and Plan - Plan Assessment and plan Anasarca in a patient with cirrhosis History of Hepatitis C and B Hypoalbuminemia T. bili 1.0, direct bili 0.4, AST 72, ALT 62, alk phos 209, total protein 6.2, albumin 2.0, corrected Calcium 9 Hepatitis panel ordered Lasix 80 mg given in the ED, will continue with Lasix 40 BID aldactone 50 BID Daily weight- weight in ED 90.72 kg intake and output Thrombocytopenia Platelets 91 hold lovenox continue to monitor Hypokalemia K 3.2, Replace PRN monitor in AM labs Substance abuse Reports methamphetamine and cigarette smoking Education on cessation, reports Dr. Thurman has educated him as well stopped alcohol a few years ago, educated on continued cessation UDS pending DVT ppx SCD d/t platelet level Full code LOS 2-3 days Discharge Plan: Home Plan to discharge in: 48 Hours - Advance Directives Does patient have a Living Will: No Does patient have a Durable POA for Healthcare: No Time Spent Managing Pts Care (In Minutes): 50
[2023-08-14] MEDS ORDERED: POTASSIUM 25 MEQ EFFERV TAB PO ONE (20:17)
[2023-08-14 20:28] LABS: Barbiturates NEGATIVE (NEGATIVE); Benzodiazepines NEGATIVE (NEGATIVE); Cocaine NEGATIVE (NEGATIVE); METHAMPHETAM POSITIVE (NEGATIVE); Methadone NEGATIVE (NEGATIVE); Opiates NEGATIVE (NEGATIVE); Phencyclidine NEGATIVE (NEGATIVE); THC Cannibis NEGATIVE (NEGATIVE)
[2023-08-14] MEDS ORDERED: ENOXAPARIN 40 MG/0.4 ML SQ SCH (21:00)
[2023-08-14] MEDS ORDERED: SPIRONOLACTONE 25 MG TABLET PO SCH (21:00)
[2023-08-14 22:07] VITALS: BP 135/79; TEMP 98.1; O2SAT 99
[2023-08-15] MEDS ORDERED: FUROSEMIDE 40 MG/4 ML VIAL IV SCH (09:00)
--- NOTE | 2023-08-17 14:37 | EKG ---
Test Date: 2023-08-14 Test Time: 15:49:18 Driller And Broacher: MEASUREMENT RESULTS: Intervals: Rate: 77 CA: 134 QRSD: 112 QT: 406 QTc: 459 [place]: P: 68 CA: 134 QRS: 78 T: 47 INTERPRETIVE STATEMENTS: Normal sinus rhythm Normal ECG Compared to ECG 10/11/2018 12:43:46 No significant changes Electronically Signed On 08-17-23 14:29:31 DEPUTY CHIEF MAGISTRATE by Ranjit Mccarty
== END 2023-08-14 21:00 | disposition left against medical advice (07) ==
LOC: ER 14:45 → ERHOLD 18:14 → 2ND 19:19
PROVIDERS: ADMIT Internal Medicine; ATTEND Internal Medicine
DX: R60.1 Generalized edema (principal); K74.60 Unspecified cirrhosis of liver; E88.09 Other disorders of plasma-protein metabolism, not elsewhere classified; D69.6 Thrombocytopenia, unspecified; E87.6 Hypokalemia; F17.210 Nicotine dependence, cigarettes, uncomplicated; F15.10 Other stimulant abuse, uncomplicated; F10.21 Alcohol dependence, in remission; Z71.6 Tobacco abuse counseling; Z71.51 Drug abuse counseling and surveillance of drug abuser; Z86.19 Personal history of other infectious and parasitic diseases
CPT/HCPCS: 85025; 80048; 36415; 85610; 80076; 84484; 83880; 80307; 71045; 93970; J1940; 93005; G0378

== ENCOUNTER 2023-08-16 17:29 | Inpatient (IN) | payer OTHER ==
--- OUTSIDE RECORDS SUMMARY | 2023-08-16 17:33 | XMS REPORT | Continuity of Care Document ---
Author Name Unknown Address [address] [place] [address] [address] th[address] Address [address] [facility]. [address] [place] [address] Care Team Providers Care Director [employer] Name Role Phone DANAY BARAJAS Attending Clinician Unavailable SKYLER LUNA Attending Clinician Unavailable ABRAN LIND Attending Clinician UnavailJONAH Braun Attending Clinician UnaGAMALIEL Jerez Attending Clinician Unavailab GUILLAUME Anna Attending Clinician Unavailable MD ADELA Attending Clinician Unavailab LACHELLE Minor Attending Clinician Unavailable SISSON_C Attending Clinician Unavailable SIA JESUS Attending Clinician Unavailable MORGAN JARRELL Attending Clinician Unavailable SISSON_C Admitting Clinician Unavailable Payers Payer Name Policy Type Policy Number Effective Date Expirati on Date Source AET[employer] MP [facility] [facility] [place] [address] [place] 9 [id number] 2023 00:00:00 [employer] (O) [id number] 2023 00:00:00 [employer] O [id number] 2023 00:00:00 Problems Condition Name Condition Details Condition Category Status Onset Date Resolution Date Last Treatment Date Treating Clinician Comments Source Edema of both lower extremitie s Edema of both lower extremitie s Disease Active 08-13 00:00: 00 Joyce pacheco Immunodefi 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 (multi 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) Disease Active - 00:00: 00 Joyce Seybold - Externa l History of hepatitis C History of hepatitis C Disease Active 2022-06 00:00: 00 Joyce Cantua l Liver cirrhosis (multi HCC) Liver cirrhosis (multi HCC) Disease Active 2022-06 00:00: 00 Joyce Cantua junior History of alcohol abuse History of alcohol abuse Disease Active 2022-06 00:00: 00 Joyce pacheco History of hepatitis B History of hepatitis B Disease Active 2022-06 00:00: 00 Joyce Cantua junior Drug abuse, amphetamin e type Drug abuse, amphetamin e type Disease Active 2022-06 00:00: 00 Joyce Cantua junior Social History Social Habit Start Date Stop Date Quantity Comments Source Sexual orientation Dexter maximiliangordy Sarah - External History of tobacco use Cigarette Smoker Joyce sam - External Cigarettes smoked current (pack per day) - Reported 2023-07-21 00:00:00 2023-07-21 00:00:00 Joyce Smith - External Tobacco use and exposure 2023-07-21 00:00:00 2023-07-21 00:00:00 Smokeless tobacco non-user Joyce Smith - External Cigarette pack-years 2023-07-21 00:00:00 2023-07-21 00:00:00 Joyce Smith - External Alcohol intake 2023-07-21 00:00:00 2023-07-21 00:00:00 Ex-drinker (finding) Joyce Smith - External Alcohol Comment 2023-06-16 00:00:00 2023-06-16 00:00:00 Sober since 2012. He was a heavy drinker in the past. Joyce Smith - External History of Social function 2023-06-16 [...] MG oral Tablet 06-26 00:00: 00 Yes [id number] 40mg Take 1 tablet (40 mg total) by mouth daily. Joyce Smith - Externa l Furosemide (Lasix) 40 MG oral Tablet 06-26 00:00: 00 Yes [id number] 40mg Take 1 tablet (40 mg total) by mouth daily. Joyce Smith - Externa l Furosemide (Lasix) 40 MG oral Tablet 06-26 00:00: 00 Yes [id number] 40mg Take 1 tablet (40 mg total) by mouth daily. Joyce Smith - Alondraa l Immunizations Ordered Immunization Name Filled Immunization Name Date Status Comments Source Covid-19 Vaccine Moderna (Spikevax), Mrna-lnp, Pillo Protein, Pf Unknown Completed Joyce Smith - External Covid-19 Vaccine Moderna (Spikevax), Mrna-lnp, Pillo Protein, Pf Unknown Completed Joyce Smith External Covid-19 Vaccine Moderna (Spikevax), Mrna-lnp, Pillo Protein, Pf Unknown Completed Joyce Stone External Covid-19 Vaccine Moderna (Spikevax), Mrna-lnp, Pillo Protein, Pf Unknown Completed Joyce Smith - External Vital Signs Vital Name Observation Time Observation Value Comments S alexanderosiel Systolic blood pressure 2023-07-21 15:25:00 117 mm[Hg] [...] 2023-10-20 09:00:00 2023-10-20 09:00:00 Outpatient DANAY BARAJAS [id number] Joyce Smith 2023-08-24 08:00:00 2023-08-24 08:00:00 Outpatient SKYLER LUNA [id number] Joyce Smith 2023-08-17 15:45:00 2023-08-17 15:45:00 Outpatient SKYLER LUNA JOYCE DRAKE [id number] Joyce [facility]ui[facility] 2023-08-14 13:30:00 2023-08-14 13:30:00 Outpatient ABRAN LINDVIOLETA DRAKE [id number] [facility] 2023-08-14 00:00:00 2023-08-14 00:00:00 Outpatient PREZAS, DANAY [facility]CE DRAKE [id number] [facility] 2023-08-13 16:15:00 2023-08-13 16:15:00 Outpatient PREZAS, DANAY JOYCE DRAKE [id number] [facility] 2023-08-13 15:30:00 2023-08-13 15:30:00 Outpatient JONAH CAMARA JOYCE DRAKE [id number] [facility] 2023-08-13 14:30:00 2023-08-13 14:30:00 Outpatient GAMALIEL NUNN JOYCE DRAKE [id number] [facility] 2023-08-04 00:00:00 2023-08-04 00:00:00 Outpatient PREZAS, DANAY JOYCE DRAKE [id number] [facility] 2023-07-30 11:00:00 2023-07-30 11:00:00 Outpatient FLORIGUILLAUME [facility] DRKAE [id number] [facility] 2023-07-30 00:00:00 2023-07-30 00:00:00 Outpatient PREZAS, DANAY DRAKE [id number] [facility] 2023-07-22 00:00:00 2023-07-22 00:00:00 Outpatient PREZAS, DANAY DRAKE [id number] [facility] 2023-07-21 09:15:00 2023-07-21 09:15:00 Outpatient PREZAS, DANAY DRAKE [id number] [facility] 2023-07-21 00:00:00 2023-07-21 00:00:00 Outpatient JOYCE DRAKE [id number] [facility] 2023-07-08 00:00:00 2023-07-08 00:00:00 Outpatient JOYCE DRAKE [id number] Joyce [facility] 2023-07-07 00:00:00 2023-07-07 00:00:00 Outpatient JOYCE DRAKE [id number] Joyce Sarah 2023-07-07 00:00:00 2023-07-07 00:00:00 Outpatient MD JOYCE SAMS [id number] Joyce Sarah 2023-07-06 00:00:00 2023-07-06 00:00:00 Outpatient HAY BARAJASKIARA DRAKE [id number] [facility] 2023-07-06 00:00:00 2023-07-06 00:00:00 Outpatient MD JOYCE SAMS [id number] Joyce Smith 2023-06-30 14:20:00 2023-06-30 14:20:00 Outpatient LACHELLE SAUCEDA JOYCE DRAKE [id number] [facility] 2023-06-26 00:00:00 2023-06-26 00:00:00 Outpatient DANAY BARAJAS JOYCE DRAKE [id number] Joyce [facility] 2023-06-26 00:00:00 2023-06-26 00:00:00 Outpatient HAY BARAJASKIARA DRAKE [id number] [facility] 2023-06-19 00:00:00 2023-06-19 00:00:00 Outpatient HAY BARAJASKIARA DRAKE [id number] Joyce [facility] 2023-06-19 00:00:00 2023-06-19 00:00:00 Outpatient HAY BARAJASKAIRA DRAKE [id number] Joyce [facility] 2023-06-16 11:15:00 2023-06-16 11:15:00 Outpatient HAY BARAJASKIARA DRAKE [id number] [facility] 2023-06-10 00:00:00 2023-06-10 00:00:00 Outpatient SISSON_C [facility] [id number] [facility]23-[facility]-26 13:54:00 2023-03-26 21:54:00 Emergency D[facility] [id number] [facility] 2023-03-26 16:54:08 2023-03-26 19:57:48 Emergency SIA JESUS [facility] [id number] [facility] 2023-03-17 08:52:00 2023-03-17 13:04:00 Emergency 1 MORGAN JARRELL [facility] [id number] [facility] 2023-03-17 09:37:38 2023-03-17 09:58:55 Emergency [facility] [id number] [facility] Results Test Description Test Time Test Comments Results Result Co mments Source HHSHBV surface Ag SerPl Ql [id number] 19:34:05* Test Item Value Reference Range Interpretation Comme nts HBV surface Ag SerPl Ql Cfm (test code = 55605-2) Confirmed Positive Refer to result values A HHSHIV 1+2 Ab+HIV1 p24 Ag SerPl Ql [id number] 10:16:40* Test Item Value Reference Range Interpretation Comme nts HIV 1+2 Ab+HIV1 p24 Ag SerPl Ql IA (test code = 78811-5) NEGATIVE Negative [facility] Notes Date/Time Note Provider Source 2023-06-16 11:10:51 [id number] T11:10:51 Chief ComplaintPatient presents withNew PatientMemory Loss06/12/23 [id number] [id number]:12:45Nurse [id number]. [id number] for patient [id number] NoteLNNARRATIVEFormatted C-CDA narrative LizySarah [address] [place], [place] [id number]:12:[id number] 2.3.15|[id number]. [id number] [facility]"
--- NOTE | 2023-08-16 19:01 | RAD REPORT ---
EXAM DESCRIPTION: Conrado Single View08/16/2023 6:34 pm CLINICAL HISTORY: Leg swelling COMPARISON: 2018 FINDINGS: The lungs appear clear of acute infiltrate. The heart is normal size IMPRESSION: No acute abnormalities displayed
[2023-08-16 19:23] LABS: PT Prothrombin Time 14.7 SECONDS (9.5-12.5); Protime INR 1.35
[2023-08-16 19:24] LABS: Absolute Basophils 0.1 K/uL (0-0.5); Absolute Eosinophils 0.5 K/uL (0-0.5); Absolute Lymphocytes (CBC) 0.7 K/uL (0.7-4.9); Absolute Monocytes 1.2 K/uL (0.1-1.3); Absolute Neutrophil 8.3 K/uL (1.8-8.0); Basophils % 0.9 % (0-1.3); Hematocrit 36.5 % (39.6-49.0); Hemoglobin 12.6 g/dL (13.6-17.9); Lymphocytes % 6.8 % (15.3-44.8); MCH 34.9 pg (27.0-35.0); MCHC 34.6 g/dL (32.0-36.0); MCV 100.9 fL (80-100); MPV 8.6 fL (7.6-11.3); Monocytes % 10.8 % (3.3-12.3); Neutrophils % 76.5 % (41.7-73.7); Platelets 130 thou/uL (152-406); RBC Red Blood Cell Count 3.62 M/uL (4.33-5.43); Red Cell Distribution Width 14.1 % (12.1-15.2)
[2023-08-16 20:11] LABS: Albumin 2.5 g/dL (3.4-5.0); Albumin/Globulin Ratio 0.5 (1.1-1.8); Anion Gap 7.2 mEq/L (5.0-15.0); Bilirubin Direct 0.6 mg/dL (0-0.2); Bilirubin Indirect, Calculated 0.8 mg/dL (0.2-0.8); Bilirubin Total 1.4 mg/dL (0.2-1.0); Globulin 5.1 g/dL (2.3-3.5); Magnesium 2.1 mg/dL (1.6-2.4); Potassium 3.2 mEq/L (3.5-5.1); Protein, Total 7.6 g/dL (6.4-8.2); Troponin High Sensitivity 4.7 pg/mL (<58.9)
--- NOTE | 2023-08-16 20:32 | RAD REPORT ---
EXAM DESCRIPTION: USExtrem Venous W Compress Bil08/16/2023 7:59 pm CLINICAL HISTORY: Leg pain COMPARISON: August 14, 2023 FINDINGS: The common femoral, superficial femoral, greater saphenous, popliteal and posterior tibial veins bilaterally are compressible and demonstrate augmentation. Doppler demonstrates good flow. Grayscale, color and spectral analysis performed on all vessels IMPRESSION: No evidence of deep venous thrombosis involving either lower extremity.
[2023-08-16] MEDS ORDERED: FUROSEMIDE 40 MG/4 ML VIAL ONE (22:57)
[2023-08-16] MEDS ORDERED: MORPHINE 4 MG/ML SYR ONE (23:05)
[2023-08-16] MEDS ORDERED: ONDANSETRON 4 MG/2 ML VIAL IV PRN (23:54)
[2023-08-16] MEDS ORDERED: ACETAMINOPHEN 325 MG TABLET PO PRN (23:54)
--- NOTE | 2023-08-16 23:54 | EDPHYS ---
Physician Documentation [facility] Name: Dennis Nova Age: 53 yrs Sex: Male : 1970 Arrival Date: 08/16/2023 Time: 17:29 Bed 14 Private MD: Spike Thurman ED Physician Joaquin Hargrove HPI: 08/16 18:30 This 53 yrs old Male presents to ER via Ambulatory with complaints of Leg Swelling. cp 18:30 The patient has shortness of breath with light activity. Onset: The symptoms/episode cp began/occurred gradually. Duration: The symptoms are continuous, and are steadily getting worse. Associated signs and symptoms: Pertinent positives: lower extremity edema, Pertinent negatives: chest pain, diaphoresis, dizziness, fever. Severity of symptoms: in the emergency department the symptoms are unchanged despite home interventions. Historical: - Allergies: 17:48 No Known Allergies; nj1 - PMHx: 17:48 Hepatitis; nj1 - Immunization history:: Client reports receiving the 2nd dose of the Covid vaccine. - Social history:: Smoking status: Patient reports the use of cigarette tobacco products, smokes one-half pack cigarettes per day. ROS: 18:35 Constitutional: Negative for body aches, chills, fever, poor PO intake, cp 18:35 Eyes: Negative for injury, pain, redness, and discharge, cp 18:35 ENT: Negative for drainage from ear(s), ear pain, sore throat, difficulty swallowing, difficulty handling secretions, 18:35 Cardiovascular: Positive for edema, Negative for chest pain, 18:35 Respiratory: Positive for shortness of breath, on exertion. 18:35 Abdomen/GI: Positive for abdominal distension, Negative for abdominal pain, vomiting, diarrhea, constipation, 18:35 Skin: Positive for erythema, of the left foot and left lower leg, 18:35 Neuro: Negative for altered mental status, dizziness, headache, syncope, weakness, 18:35 All other systems are negative, Exam: 18:40 Constitutional: The patient appears in no acute distress, alert, awake, cp non-diaphoretic, non-toxic, well developed, well nourished, uncomfortable, 18:40 Head/Face: Normocephalic, atraumatic. cp 18:40 Eyes: Periorbital structures: appear normal, Conjunctiva: normal, no exudate, no injection, Sclera: no appreciated abnormality, Lids and lashes: appear normal, bilaterally, 18:40 ENT: External ear(s): are unremarkable, Nose: is normal, Mouth: Lips: moist, Oral mucosa: pink and intact, moist, Posterior pharynx: Airway: no evidence of obstruction, patent, 18:40 Chest/axilla: Inspection: normal, 18:40 Cardiovascular: Rate: normal, Rhythm: regular, Edema: pedal edema, that is marked, extending to abdomen, JVD: is not appreciated, 18:40 Respiratory: the patient does not display signs of respiratory distress, Respirations: labored breathing, is not present, shallow respirations, that is mild, Breath sounds: decreased breath sounds, that are mild, throughout, stridor, is not appreciated, wheezing: is not appreciated, 18:40 Abdomen/GI: Inspection: distension, that is moderate, Bowel sounds: active, all quadrants, Palpation: abdomen is soft and non-tender, in all quadrants, 18:40 Skin: cellulitis, that is moderate, irregular, on the left foot and left leg, 18:40 Neuro: Orientation: to person, place \T\ time. Mentation: is normal, Vital Signs: 17:45 BP 148 / 80; Pulse 84; Resp 18; Temp 98.8; Pulse Ox 100% ; Weight 90.72 kg; Height 5 nj1 ft. 8 in. ; 23:21 BP 148 / 80; Pulse 104; Resp 12; Pulse Ox 97% on R/A; Pain 10/10; tm6 17:45 Body Mass Index 30.41 (90.72 kg, 172.72 cm) nj1 23:21 Pain Scale: Adult tm6 MDM: 17:51 Patient medically screened. cp 23:30 Data reviewed: vital signs, nurses notes, lab test result(s), EKG, radiologic studies, cp plain films, ultrasound. 23:30 Independent interpretation of the following test(s) in the Emergency Department EKG: cp See my EKG interpretation above. Care significantly affected by the following chronic conditions: Liver Disease. 08/16 18:21 Order name: Basic Metabolic Panel; Complete Time: 22:43 cp 08/16 18:21 Order name: CBC with Diff; Complete Time: 22:43 cp 08/16 18:21 Order name: LFT's; Complete Time: 22:43 cp 08/16 18:21 Order name: Magnesium; Complete Time: 22:43 cp 08/16 18:21 Order name: NT PRO-BNP; Complete Time: 22:43 cp 08/16 18:21 Order name: PT-INR; Complete Time: 22:43 cp 08/16 18:21 Order name: Troponin HS; Complete Time: 22:43 cp 08/16 23:21 Order name: Lactate w/ 2H reflex if indic. cp 08/16 23:21 Order name: Blood Culture Adult (2) cp 08/17 00:00 Order name: Urinalysis w/ reflexes EDMS 08/17 00:00 Order name: CBC with Automated Diff EDMS 08/17 00:00 Order name: CBC with Automated Diff EDMS 08/17 00:00 Order name: Comprehensive Metabolic Panel EDMS 08/17 00:00 Order name: Comprehensive Metabolic Panel EDMS 08/16 18:21 Order name: XRAY Chest (1 view); Complete Time: 22:43 cp 08/16 19:06 Order name: US Extremity Venous W Compression Filemon; Complete Time: 22:43 cp 08/16 23:21 Order name: XRAY Foot LEFT 3 View cp 08/17 07:48 Order name: US EDMS 08/16 18:21 Order name: EKG; Complete Time: 18:22 cp 08/16 18:21 Order name: Cardiac monitoring; Complete Time: 23:19 cp 08/16 18:21 Order name: EKG - Nurse/Tech; Complete Time: 19:06 cp 08/16 18:21 Order name: IV Saline Lock; Complete Time: 19:06 cp 08/16 18:21 Order name: Labs collected and sent; Complete Time: 19:07 cp 08/16 18:21 Order name: O2 Per Protocol; Complete Time: 23:20 cp 08/16 18:21 Order name: O2 Sat Monitoring; Complete Time: 23:20 cp Administered Medications: 23:19 Drug: Furosemide IVP 40 mg IVP once; give over 2 minutes Route: IVP; Site: right tm6 forearm; 23:19 Drug: morphine IVP or IV 4 mg IVP once over 4 mins Route: IVP; Infused Over: 4 mins; tm6 Site: right forearm; 08/17 00:31 Drug: vancoMYCIN IVPB 1 grams IVPB once over 2 hrs Route: IVPB; Infused Over: 2 hrs; tm6 Site: right forearm; Disposition Summary: 08/16/23 23:53 Hospitalization Ordered Notes: Hospitalization Status: Inpatient Admission cp Provider: Ash Taylor cp Condition: Stable cp Problem: an acute exacerbation cp Symptoms: have improved cp Bed/Room Type: Standard cp Location: Telemetry/MedSurg (Inpatient)(08/17/23 07:19) bd Room Assignment: 222(08/17/23 07:19) bd Diagnosis - Edema, unspecified cp - Dyspnea cp - Cellulitis of left lower limb cp Forms: - Medication Reconciliation Form cp - SBAR form cp - Leadership Thank You Letter cp Signatures: Dispatcher [employer] EDMS Patricia Wilburn Corey, PA PA cp Garcia, Cindy, RN RN cg Erin Langford RN RN nj1 Margo Prabhakar RN RN tm6 Corrections: (The following items were deleted from the chart) 00:18 08/16 23:53 Telemetry/MedSurg (Inpatient) cp cg 08/17 00:18 08/16 23:53 cp cg 08/17 07:19 00:18 [facility] ER HOLD cg bd 07:19 00:18 ERHOLD- cg bd
--- NOTE | 2023-08-16 23:54 | ER ---
Nurse's Notes [facility] Name: Dennis Nova Age: 53 yrs Sex: Male : 1970 Arrival Date: 08/16/2023 Time: 17:29 Bed 14 Private MD: Spike Thurman Diagnosis: Edema, unspecified;Dyspnea;Cellulitis of left lower limb Presentation: 08/16 17:45 Chief complaint: Patient states: Bilateral leg swelling since Thursday, was seen here nj1 but left AMA. Coronavirus screen: Vaccine status: Patient reports receiving the 2nd dose of the covid vaccine. Ebola Screen: Patient denies travel to an Ebola-affected area in the 21 days before illness onset. Initial Sepsis Screen: Does the patient meet any 2 criteria? No. Patient's initial sepsis screen is negative. Does the patient have a suspected source of infection? No. Patient's initial sepsis screen is negative. Risk Assessment: Do you want to hurt yourself or someone else? Patient reports no desire to harm self or others. Onset of symptoms was August 10, 2023. 17:45 Method Of Arrival: Ambulatory [facility] 17:45 Acuity: VINH 3 nj1 Historical: - Allergies: 17:48 No Known Allergies; nj1 - PMHx: 17:48 Hepatitis; nj1 - Immunization history:: Client reports receiving the 2nd dose of the Covid vaccine. - Social history:: Smoking status: Patient reports the use of cigarette tobacco products, smokes one-half pack cigarettes per day. Screenin:21 [facility] ED Fall Risk Assessment (Adult) History of falling in the last 3 months, tm6 including since admission No falls in past 3 months (0 pts) Confusion or Disorientation No (0 pts) Intoxicated or Sedated No (0 pts) Impaired Gait Yes (1 pt) Mobility Assist Device Used No (0 pt) Altered Elimination No (0 pt) Score/Fall Risk Level 0 - 2 = Low Risk Oriented to surroundings, Maintained a safe environment. Abuse screen: Denies threats or abuse. Denies injuries from another. Nutritional screening: No deficits noted. Tuberculosis screening: No symptoms or risk factors identified. Assessment: 23:21 General: Appears in no apparent distress. uncomfortable, Behavior is calm, cooperative. tm6 Pain: Complains of pain in back and abdomen Pain currently is 10 out of 10 on a pain scale. Quality of pain is described as crampy, Is continuous. Neuro: Level of Consciousness is awake, alert, obeys commands, Oriented to person, place, time, situation. Cardiovascular: Capillary refill < 3 seconds Patient's skin is warm and dry. Rhythm is sinus tachycardia. Respiratory: Airway is patent Respiratory effort is even, labored, Respiratory pattern is regular, symmetrical, Parent/caregiver reports the patient having shortness of breath on exertion. GI: Reports lower abdominal pain, upper abdominal pain, cramping. : No signs and/or symptoms were reported regarding the genitourinary system. EENT: No signs and/or symptoms were reported regarding the EENT system. Derm: Skin has blisters on left foot Skin is red, Skin temperature is warm +4 edema bilateral lower extremity. Musculoskeletal: Reports pain in back since chronic back pain. Vital Signs: 17:45 BP 148 / 80; Pulse 84; Resp 18; Temp 98.8; Pulse Ox 100% ; Weight 90.72 kg; Height 5 nj1 ft. 8 in. ; 23:21 BP 148 / 80; Pulse 104; Resp 12; Pulse Ox 97% on R/A; Pain 10/10; tm6 17:45 Body Mass Index 30.41 (90.72 kg, 172.72 cm) nj1 23:21 Pain Scale: Adult tm6 ED Course: 17:32 Patient arrived in ED. mr 17:32 Spike Thurman DO is Private Physician. mr 17:48 Triage completed. nj1 17:48 Arm band placed on left wrist. nj1 17:51 Joaquin Oliveros PA is PHCP. cp 17:51 Joaquin Hargrove MD is Attending Physician. cp 18:36 XRAY Chest (1 view) In Process Unspecified. EDMS 19:07 Basic Metabolic Panel Sent. bc6 19:07 CBC with Diff Sent. bc6 19:07 LFT's Sent. bc6 19:07 Magnesium Sent. bc6 19:07 NT PRO-BNP Sent. bc6 19:07 PT-INR Sent. bc6 19:07 Troponin HS Sent. bc6 19:07 Inserted saline lock: 22 gauge in right forearm, using aseptic technique. Blood bc6 collected. 20:01 US Extremity Venous W Compression Filemon In Process Unspecified. EDMS 22:55 Margo Prabhakar, RN is Primary Nurse. tm6 23:21 Patient has correct armband on for positive identification. Placed in gown. Bed in low tm6 position. Call light in reach. Side rails up X 1. Provided Education on: plan of care. Client placed on continuous cardiac and pulse oximetry monitoring. NIBP monitoring applied. color television console monitor on. Pulse ox on. NIBP on. Door closed. Noise minimized. Warm blanket given. 23:39 XRAY Foot LEFT 3 View In Process Unspecified. EDMS 23:51 Ash Taylor MD is Hospitalizing Provider. cp Administered Medications: 23:19 Drug: Furosemide IVP 40 mg IVP once; give over 2 minutes Route: IVP; Site: right tm6 forearm; 23:19 Drug: morphine IVP or IV 4 mg IVP once over 4 mins Route: IVP; Infused Over: 4 mins; tm6 Site: right forearm; 08/17 00:31 Drug: vancoMYCIN IVPB 1 grams IVPB once over 2 hrs Route: IVPB; Infused Over: 2 hrs; tm6 Site: right forearm; Medication: 08/16 23:21 VIS not applicable for this client. tm6 Outcome: 23:53 Decision to Hospitalize by Provider. cp 08/17 08:31 Patient left the ED. bd Signatures: Dispatcher [employer] EDMS Patricia Wilburn Mary, Reg Reg mr Joaquin Oliveros, PA PA cp Lawanda Monteiro 6 Erin Langford RN RN nj1 Margo Prabhakar, DIANDRA RN tm6
--- NOTE | 2023-08-17 00:04 | P.HP ---
Certification for Inpatient Patient admitted to: Inpatient With expected LOS: >2 Midnights Practitioner: I am a practitioner with admitting privileges, knowledge of patient current condition, hospital course, and medical plan of care. Services: Services provided to patient in accordance with Admission requirements found in Title 42 Section 412.3 of the Code of Federal Regulations Patient History Date of Service: 08/17/23 Reason for admission: Lower extremity swelling, left leg pain History of Present Illness: 53-year-old male with past medical history of cirrhosis liver, hepatitis C, hep B who presented to the ER with worsening of lower extremity swelling which has been progressively hurting worse for the last few days associated with left leg pain. Denies any trauma. Patient is not taking any medications at home for leg pain/swelling. Denies any fever or chills. No nausea vomiting or diarrhea. Denies any chest pain or shortness of breath. Patient noticed that the swelling of bilateral lower extremities is progressing and is extending into the abdomen too. Denies any abdominal pain. Denies any dysuria Patient was assessed in the ER and was noticed to have bilateral lower extremities swelling associated with ascites and left lower extremity cellulitis. Doppler was negative for DVT. Patient was admitted for further management Allergies No Known Allergies Allergy (Unverified 03/11/12 11:59) Home medications list reviewed: Yes Home Medications: NK [No Home Meds] 03/11/12 - Past Medical/Surgical History Past Medical History: Reviewed- Non-Contributory -: hepatitis C -: Hepatitis B -: Cirrhosis Past Surgical History: Reviewed- Non-Contributory - Family History Family History: Reviewed- Non-Contributory - Social History Smoking Status: Current some day smoker Alcohol use: Yes CD- Drugs: Yes Caffeine use: Yes Review of Systems 10-point ROS is otherwise unremarkable Physical Examination - Vital Signs Temperature: 98.6 F Blood Pressure: 138/72 Pulse: 68 Respirations: 18 Pulse Ox (%): 96 - Physical Exam General: Alert, In no apparent distress, Oriented x3, Cooperative HEENT: Atraumatic, Normocephalic Neck: Supple, 2+ carotid pulse no bruit Respiratory: Clear to auscultation bilaterally, Normal air movement Cardiovascular: Regular rate/rhythm, Normal S1 S2, No gallops, No rubs Capillary refill: <2 Seconds Gastrointestinal: Soft and benign, No tenderness, No masses, No rebound, No guarding, Ascites Musculoskeletal: No clubbing, No contractures, Swelling Integumentary: No rashes, Tenderness/swelling, Erythema, Warmth Neurological: Normal speech, Normal strength at 5/5 x4 extr, Cranial nerves 3-12 intact, Normal reflexes 2+, Normal affect Lymphatics: No axilla or inguinal lymphadenopathy - Studies Laboratory Data (last 24 hrs) 08/16/23 08/16/23 08/16/23 19:05 19:05 19:05 WBC 10.90 Hgb 12.6 L Hct 36.5 L Plt Count 130 L PT 14.7 H INR 1.35 Sodium 138 Potassium 3.2 L BUN 16 Creatinine 0.90 Glucose 82 Magnesium 2.1 Total Bilirubin 1.4 H AST 105 H ALT 77 H Alkaline Phosphatase 291 H Assessment and Plan - Problems (Diagnosis) (1) Left leg cellulitis Current Visit: Yes Status: Acute (2) Anasarca Current Visit: Yes Status: Acute (3) Cirrhosis of liver Current Visit: Yes Status: Chronic (4) Elevated liver enzymes Current Visit: Yes Status: Acute Plan: Left leg cellulitis Started on antibiotics Will obtain cultures Monitor closely on telemetry Change antibiotic as per sensitivity pain control Elevated LFTs Patient has a history of cirrhosis liver Noted to have anasarca Will get an ultrasound of the abdomen Trend LFTs Started on Lasix Will add on spironolactone Also added on lactulose Patient need follow-up with GI as outpatient Hypokalemia Replace electrolytes Monitor renal parameters GI/DVT prophylaxis Advanced directive full code Plan to discharge in: 48 Hours - Advance Directives Does patient have a Living Will: No Does patient have a Durable POA for Healthcare: No - Code Status/Comfort Care Code Status: Full Code Time Spent Managing Pts Care (In Minutes): 49
[2023-08-17] MEDS ORDERED: VANCOMYCIN 1 GM/VIAL ONE (00:19)
[2023-08-17] MEDS: NA CHLORIDE 0.9% 250 ML ONE (00:21)
[2023-08-17] MEDS: CEFTRIAXONE 1,000 MG in NA CHLORIDE 0.9% 50 ML IVPB SCH (02:00)
[2023-08-17] MEDS ORDERED: NA CHLORIDE 0.9% 50 ML ONE (02:00)
[2023-08-17] MEDS ORDERED: CEFTRIAXONE 1000 MG/VIAL ONE (02:00)
[2023-08-17 02:31] VITALS: BMI 24.1
[2023-08-17 03:26] LABS: Absolute Basophils 0.1 K/uL (0-0.5); Absolute Eosinophils 0.2 K/uL (0-0.5); Absolute Lymphocytes (CBC) 0.7 K/uL (0.7-4.9); Absolute Monocytes 1.1 K/uL (0.1-1.3); Absolute Neutrophil 10.6 K/uL (1.8-8.0); Basophils % 0.6 % (0-1.3); Eosinophils % 1.4 % (0-4.4); Hematocrit 34.1 % (39.6-49.0); Hemoglobin 11.7 g/dL (13.6-17.9); Lymphocytes % 5.3 % (15.3-44.8); MCH 34.5 pg (27.0-35.0); MCHC 34.4 g/dL (32.0-36.0); MCV 100.6 fL (80-100); MPV 8.7 fL (7.6-11.3); Neutrophils % 83.7 % (41.7-73.7); Nucleated Red Blood Cells % 0.1 % (0-0); Platelets 99 thou/uL (152-406); RBC Red Blood Cell Count 3.39 M/uL (4.33-5.43); Red Cell Distribution Width 14.7 % (12.1-15.2)
[2023-08-17 03:48] LABS: Albumin 2.1 g/dL (3.4-5.0); Albumin/Globulin Ratio 0.5 (1.1-1.8); Anion Gap 7.7 mEq/L (5.0-15.0); Bilirubin Total 2.1 mg/dL (0.2-1.0); Globulin 4.5 g/dL (2.3-3.5); Potassium 3.7 mEq/L (3.5-5.1); Protein, Total 6.6 g/dL (6.4-8.2)
[2023-08-17] MEDS: POTASSIUM CL SA 10 MEQ TAB PO ONE (04:08)
[2023-08-17] MEDS ORDERED: POTASSIUM CL SA 10 MEQ TAB PO ONE (04:47)
[2023-08-17] MEDS ORDERED: HYDROCODONE/APAP 10/325 TAB ONE (07:11)
[2023-08-17] MEDS: HYDROCODONE/APAP 10/325 TAB PO PRN (07:12)
--- NOTE | 2023-08-17 07:48 | RAD REPORT ---
EXAM DESCRIPTION: US - Abdomen Exam Complete - 08/17/2023 1:44 am CLINICAL HISTORY: Elevated LFTs COMPARISON: No comparisons FINDINGS: Distal abdominal aortic obscured by bowel gas. Coarsened echotexture of the liver with nodular configuration. No focal mass identified. The portal vein is patent. The IVC at the level of the liver is unremarkable. No ascites. Distended gallbladder with sludge. No biliary ductal dilatation. Gallbladder wall is thickened and th ere is some trace pericholecystic fluid. Common bile duct measures 5 millimeters . The pancreas was not well-visualized. The right kidney measures 15.2 cm normal echotexture. Mild hydronephrosis. No suspicious masses. The left kidney measures 15.3 cm with a normal echotexture. No hydronephrosis. 14 mm left renal corti dina cyst. Question malrotation. The spleen is enlarged measuring 14.8 cm. IMPRESSION: Cirrhotic liver morphology with evidence of portal hypertension including splenomegaly. No focal mass. Distended gallbladder with mild gallbladder wall thickening and trace pericholecystic fluid which cou ld be related to underlying liver disease rather than cholecystitis. Mild right-sided hydronephrosis. This is of uncertain etiology.
[2023-08-17] MEDS: SPIRONOLACTONE 25 MG TABLET PO SCH (09:55)
[2023-08-17] MEDS: FUROSEMIDE 20 MG/ 2ML VIAL IV SCH (09:56)
[2023-08-17] MEDS: DOXYCYCLINE 100 MG CAP PO SCH (09:56)
[2023-08-17 11:50] LABS: Specific Gravity 1.017 (1.005-1.030); Urine Bilirubin NEGATIVE (Negative); Urine Blood Negative (Negative); Urine Clarity Clear (Clear); Urine Color Yellow (Yellow); Urine Glucose NEGATIVE (Negative); Urine Ketones NEGATIVE (Negative); Urine Microscopic Reflex YN NO UMIC; Urine Nitrite NEGATIVE (Negative); Urine Protein NEGATIVE (Negative); Urine Urobilinogen 1+ (Normal)
--- NOTE | 2023-08-17 13:18 | RAD REPORT ---
EXAM DESCRIPTION: RAD - Foot Left 3 View - 08/16/2023 11:37 pm CLINICAL HISTORY: The patient is 53 years old and is Male; PAIN TECHNIQUE: Frontal, lateral and oblique views of the left foot. COMPARISON: No relevant prior studies available. FINDINGS: BONES/JOINTS: Metallic density projects within the region of the head of the first proxi mal phalanx. This may be postsurgical. The bone mineralization and contour is otherwise unremarkable. No acute fracture. No dislocation. SOFT TISSUES: Diffuse soft tissue swelling of the dorsum of the foot is present with suggestion o f subtle ulceration. No radiopaque foreign body. IMPRESSION: Diffuse soft tissue swelling of the dorsum of the foot is present with suggestion of sub tle ulceration. No underlying acute bony abnormality. Electronically signed by: Shayla Mckeon MD 08/17/2023 12:04 AM PACK CHANGER Due to temporary technical issues with the PACS/Fluency reporting system, reports are being signed by the in house radiologists without review as a courtesy to insure prompt reporting. The interpreting radiologist is fully responsible for the content of the report
--- NOTE | 2023-08-17 14:29 | EKG ---
Test Date: 2023-08-16 Test Time: 19:15:13 Brush Filler Hand: GABBIE MEASUREMENT RESULTS: Intervals: Rate: 79 VT: 108 QRSD: 86 QT: 378 QTc: 433 [place]: P: 71 VT: 108 QRS: 98 T: 34 INTERPRETIVE STATEMENTS: Sinus rhythm with short VT Rightward axis Junctional ST depression, probably normal Borderline ECG Compared to ECG 08/14/2023 15:49:18 Short VT interval now present Right-axis deviation now present ST (T wave) deviation now present Electronically Signed On 08-17-23 14:26:25 SPINNING DOFFER by Ranjit Mccarty
--- NOTE | 2023-08-17 16:05 | P.PN ---
Date of Service: 08/17/23 Patient seen and examined. Bilateral lower extremity edema. No redness noted today. Abdomen is not distended. Plan: Lasix dose increased to 40 mg twice daily. Aldactone dose increased to 50 mg daily. Monitor intake and output. Keep lower extremities elevated. Monitor and optimize electrolytes.
[2023-08-17] MEDS: ENOXAPARIN 40 MG/0.4 ML SQ SCH (17:34)
[2023-08-17] MEDS: FUROSEMIDE 40 MG/4 ML VIAL IV SCH (17:34)
[2023-08-18 07:38] LABS: Absolute Basophils 0.1 K/uL (0-0.5); Absolute Eosinophils 0.4 K/uL (0-0.5); Absolute Lymphocytes (CBC) 0.7 K/uL (0.7-4.9); Absolute Monocytes 0.8 K/uL (0.1-1.3); Absolute Neutrophil 3.8 K/uL (1.8-8.0); Eosinophils % 6.5 % (0-4.4); Hematocrit 30.6 % (39.6-49.0); Hemoglobin 10.7 g/dL (13.6-17.9); Lymphocytes % 12.7 % (15.3-44.8); MCH 35.1 pg (27.0-35.0); MCHC 34.8 g/dL (32.0-36.0); MCV 100.8 fL (80-100); MPV 8.4 fL (7.6-11.3); Monocytes % 13.7 % (3.3-12.3); Neutrophils % 66.1 % (41.7-73.7); Nucleated Red Blood Cells % 0.1 % (0-0); Platelets 106 thou/uL (152-406); RBC Red Blood Cell Count 3.04 M/uL (4.33-5.43); Red Cell Distribution Width 14.4 % (12.1-15.2)
[2023-08-18 07:56] LABS: Albumin 1.8 g/dL (3.4-5.0); Albumin/Globulin Ratio 0.4 (1.1-1.8); Anion Gap 5.4 mEq/L (5.0-15.0); Globulin 4.5 g/dL (2.3-3.5); Potassium 3.4 mEq/L (3.5-5.1); Protein, Total 6.3 g/dL (6.4-8.2)
[2023-08-18] MEDS: SPIRONOLACTONE 25 MG TABLET PO SCH (08:18)
[2023-08-18] MEDS: LACTULOSE 20 GM/30 ML UCUP PO PRN (08:31)
--- NOTE | 2023-08-18 12:04 | P.PN ---
Date of Service: 08/18/23 Subjective: feels abdomen has been getting more distended over the last 1-2 weeks, +intermittent abdominal pain Doesn't feel much improvement since admission reports compliance with lasix prior to admission afebrile worst symptoms are his pain in his left upper leg /thigh ROS: 10 point ROS as noted above, otherwise negative Physical Exam: GEN: Alert, oriented, NAD HEENT: Normal conjunctiva, sclera anicteric, CV: Regular rate and rhythm, Bilateral lower extremity edema L > R Pulm: Nonlabored respirations on room air, clear bilaterally ABD: minimal discomfort on palpation, mod abdominal distention, +ascites Integumentary: erythema diffusely of left upper thigh, with medial/posterior induration Neuro: Normal speech, normal affect Problem List: left lower extremity / thigh cellulitis gram positive bacteremia Bilateral lower extremity edema, L > R cirrhosis of the liver / hx of alcohol abuse Mild right-sided hydronephrosis; incidental hx of Hepatitis C and B elevated LFTs h/o inguinal hernia left lower extremity / thigh cellulitis gram positive bacteremia Bilateral lower extremity edema, L > R Foot xray (08/16): Diffuse soft tissue swelling of the dorsum of the foot with suggestion of subtle ulceration. No underlying acute bony abnormality. venous u/s (08/16): no DVT blood cx (08/17): +GPC 1/4 bottles. rocephin / doxy dc'd (08/17-08/18) switch to zosyn (08/18-) per ID recs afebrile, leukocytosis resolved follow blood cultures ID consulted continue IV lasix BID; increased 08/17 continue Spironolactone; increased 08/17 Keep lower extremities elevated PRN analgesics / antiemetics cirrhosis of the liver / hx of alcohol abuse Mild right-sided hydronephrosis hx of Hepatitis C and B elevated LFTs Patient has history of cirrhosis. Reported stopping alcohol several years ago. Had scheduled follow up appointment with GI earlier this week. Missed due to being hospitalized abdominal u/s (08/16): cirrhotic liver morphology with evidence of portal hypertension including splenomegaly. Distended gallbladder with mild gallbladder wall thickening and trace pericholecystic fluid. mild right-sided hydronephrosis LFTs ~same as yesterday Trend LFTs VTE: Lovenox Code: Full Dispo: Home, ~2-3 days Pending culture results, edema improves
[2023-08-18] MEDS: ENSURE HIGH PROTEIN 237 ML CAN PO SCH (20:43)
[2023-08-19 04:45] LABS: Absolute Basophils 0.1 K/uL (0-0.5); Absolute Eosinophils 0.5 K/uL (0-0.5); Absolute Lymphocytes (CBC) 0.9 K/uL (0.7-4.9); Absolute Monocytes 0.8 K/uL (0.1-1.3); Absolute Neutrophil 4.4 K/uL (1.8-8.0); Basophils % 1.3 % (0-1.3); Eosinophils % 6.7 % (0-4.4); Hematocrit 31.8 % (39.6-49.0); Hemoglobin 11.1 g/dL (13.6-17.9); Lymphocytes % 13.9 % (15.3-44.8); MCH 35.1 pg (27.0-35.0); MCHC 34.8 g/dL (32.0-36.0); MCV 100.8 fL (80-100); MPV 8.3 fL (7.6-11.3); Monocytes % 12.5 % (3.3-12.3); Neutrophils % 65.6 % (41.7-73.7); Platelets 103 thou/uL (152-406); RBC Red Blood Cell Count 3.16 M/uL (4.33-5.43); Red Cell Distribution Width 14.4 % (12.1-15.2)
[2023-08-19 04:56] LABS: Albumin 1.8 g/dL (3.4-5.0); Albumin/Globulin Ratio 0.4 (1.1-1.8); Anion Gap 2.9 mEq/L (5.0-15.0); Bilirubin Total 0.7 mg/dL (0.2-1.0); Globulin 4.3 g/dL (2.3-3.5); Magnesium 2.1 mg/dL (1.6-2.4); Potassium 3.9 mEq/L (3.5-5.1); Protein, Total 6.1 g/dL (6.4-8.2)
[2023-08-19] MEDS: POTASSIUM CL SA 10 MEQ TAB PO ONE (08:22)
--- NOTE | 2023-08-19 09:05 | P.CNS ---
Date of Consult: 08/19/23 Reason for Consult: cellulitis Chief Complaint: Lower extremity swelling, left leg pain History of Present Illness: Patient is a 53 yo male with a past medical history of liver cirrhosis, hep C, Hep B who presented to the ED with complaints of worsening left lower extremity edema, erythema and pain. Allergies No Known Allergies Allergy (Unverified 03/11/12 11:59) Home medications list reviewed: Yes Home Medications: NK [No Home Meds] 03/11/12 - Past Medical/Surgical History -: hepatitis C -: Hepatitis B -: Cirrhosis - Social History Smoking Status: Current every day smoker Alcohol use: Yes CD- Drugs: Yes Caffeine use: Yes Review of Systems Musculoskeletal: Back Pain, Leg Pain (left) Physical Examination Temp Pulse Resp BP Pulse Ox 97.0 F 66 14 126/70 98 08/19/23 08:00 08/19/23 08:00 08/19/23 08:00 08/19/23 08:00 08/19/23 08:00 General: Alert, In no apparent distress, Oriented x3 HEENT: Atraumatic, Normocephalic Respiratory: Clear to auscultation bilaterally, Normal air movement Cardiovascular: Regular rate/rhythm, Edema (L>R) Gastrointestinal: Normal bowel sounds, Ascites Integumentary: Tenderness/swelling (left lower extremity) Neurological: Normal speech Laboratory Data - Reviewed Microbiology Data - Reviewed Imagings Data: - Reviewed Conclusions/Impression: Problem List Cellulitis, left lower extremity Gram-Positive Bacteremia Cirrhosis Hx hepatitis C Hx hepatitis B Cellulitis, left lower extremity Gram-Positive Bacteremia - Blood cultures 08/17: beta hemolytic strep in 1 of 4 bottles - Currently on Zosyn (started 08/19) - Previously on Ceftriaxone and Doxycycline (08/17-08/18) - Venous ultrasound 08/16: "No evidence of deep venous thrombosis involving either lower extremity." - Abdominal ultrasound 08/17: "Cirrhotic liver morphology with evidence of portal hypertension including splenomegaly. No focal mass. Distended gallbladder with mild gallbladder wall thickening and trace pericholecystic fluid which could be related to underlying liver disease rather than cholecystitis. Mild right- sided hydronephrosis. This is of uncertain etiology." Recommendations - gram positive Bacteremia: continue antibiotic therapy for 14 days - Continue Zosyn for now - follow up with final blood culture / speciation results. Will adjust antibiotics as appropriate - Repeat blood culture Case discussed with Denisha Grant
--- NOTE | 2023-08-19 11:01 | P.PN ---
Date of Service: 08/19/23 Subjective: ROS: 10 point ROS as noted above, otherwise negative Physical Exam: GEN: Alert, oriented, NAD HEENT: Normal conjunctiva, sclera anicteric, CV: Regular rate and rhythm, Bilateral lower extremity edema L > R Pulm: Nonlabored respirations on room air, clear bilaterally ABD: minimal discomfort on palpation, mod abdominal distention, +ascites Integumentary: erythema diffusely of left upper thigh, with medial/posterior induration Neuro: Normal speech, normal affect Problem List: left lower extremity / thigh cellulitis gram positive bacteremia Bilateral lower extremity edema, L > R cirrhosis of the liver / hx of alcohol abuse Mild right-sided hydronephrosis; incidental hx of Hepatitis C and B elevated LFTs h/o inguinal hernia left lower extremity / thigh cellulitis gram positive bacteremia Bilateral lower extremity edema, L > R Foot xray (08/16): Diffuse soft tissue swelling of the dorsum of the foot with suggestion of subtle ulceration. No underlying acute bony abnormality. venous u/s (08/16): no DVT blood cx (08/17): prelim beta hemolytic strep grp B in 1/4 bottles repeat blood cx (08/19): pending IV rocephin / doxy (08/17-08/18) switched to zosyn (08/18-) per ID recs continue IV zosyn (08/18-) afebrile, leukocytosis resolved Final abx choice pending culture results. ID recommending at least 2 weeks abx ID consulted continue IV lasix BID; increased 08/17 continue Spironolactone; increased 08/17 Keep lower extremities elevated PRN analgesics / antiemetics cirrhosis of the liver / hx of alcohol abuse Mild right-sided hydronephrosis; incidental hx of Hepatitis C and B elevated LFTs Patient has history of cirrhosis. Reported stopping alcohol several years ago. Had scheduled follow up appointment with GI earlier this week. Missed due to being hospitalized abdominal u/s (08/16): cirrhotic liver morphology with evidence of portal hypertension including splenomegaly. Distended gallbladder with mild gallbladder wall thickening and trace pericholecystic fluid. mild right-sided hydronephrosis LFTs ~same as yesterday Trend LFTs VTE: Lovenox Code: Full Dispo: Home, ~2-3 days Pending culture results, edema improves
[2023-08-19] MEDS: PIPER TAZO 3.375 GM in NA CHLORIDE 0.9% 100 ML IV SCH (19:39)
[2023-08-20 04:17] LABS: Absolute Basophils 0.1 K/uL (0-0.5); Absolute Eosinophils 0.3 K/uL (0-0.5); Absolute Lymphocytes (CBC) 0.8 K/uL (0.7-4.9); Absolute Monocytes 0.6 K/uL (0.1-1.3); Absolute Neutrophil 4.3 K/uL (1.8-8.0); Basophils % 1.4 % (0-1.3); Eosinophils % 5.5 % (0-4.4); Hematocrit 31.9 % (39.6-49.0); Lymphocytes % 12.5 % (15.3-44.8); MCHC 34.5 g/dL (32.0-36.0); MCV 101.6 fL (80-100); MPV 8.5 fL (7.6-11.3); Monocytes % 10.1 % (3.3-12.3); Neutrophils % 70.5 % (41.7-73.7); Platelets 105 thou/uL (152-406); RBC Red Blood Cell Count 3.14 M/uL (4.33-5.43); Red Cell Distribution Width 14.6 % (12.1-15.2)
--- NOTE | 2023-08-20 08:32 | P.PN ---
Date of Service: 08/20/23 Chief Complaint: Lower extremity swelling, left leg pain Subjective: In no apparent distress. No acute events overnight. + left lower extremity pain. Physical Examination Temp Pulse Resp BP Pulse Ox 97.7 F 57 12 112/60 99 08/20/23 07:54 08/20/23 07:54 08/20/23 07:54 08/20/23 07:54 08/20/23 07:54 General: Alert, In no apparent distress, Oriented x3 HEENT: Atraumatic, Normocephalic. Respiratory: Clear to auscultation bilaterally, Normal air movement. On room air. Cardiovascular: Regular rate/rhythm, BLE Edema (L>R) Gastrointestinal: Normal bowel sounds, Ascites Integumentary: Tenderness/swelling left lower extremity. Neurological: Normal speech Laboratory Data - Reviewed Microbiology Data - Reviewed Imagings Data: - Reviewed Medications List: Reviewed Assessment and Plan Problem List Cellulitis, left lower extremity Gram-Positive Bacteremia Cirrhosis Hx hepatitis C Hx hepatitis B Cellulitis, left lower extremity Gram-Positive Bacteremia - Blood cultures 08/17: Streptococcus dysgalactiae in 2 of 4 bottles. - Currently on Zosyn (started 08/19) - Previously on Ceftriaxone and Doxycycline (08/17-08/18) - Venous ultrasound 08/16: "No evidence of deep venous thrombosis involving either lower extremity." - Abdominal ultrasound 08/17: "Cirrhotic liver morphology with evidence of portal hypertension including splenomegaly. No focal mass. Distended gallbladder with mild gallbladder wall thickening and trace pericholecystic fluid which could be related to underlying liver disease rather than cholecystitis. Mild right-sided hydronephrosis. This is of uncertain etiology." Recommendations - Strep bacteremia/cellulitis: continue antibiotic therapy for 14 days - Currently on Zosyn. Consider switch to Ceftriaxone 2g IV q24h to complete remainder of antibiotic course - Follow up with repeat blood culture results - Keep legs elevated. - continue diuretics - pain management per primary team - cirrhosis, hx hepatitis: follow up with GI as outpatient - Patient will likely require PICC line for continued IV antibiotics. Pending home health arrangements. CM/SS following. Case discussed with Denisha Grant
--- NOTE | 2023-08-20 09:46 | P.PN ---
Date of Service: 08/20/23 Subjective: Feels some improvement each day. Feels lower extremity edema is improving and area is less painful significant urine output last few days. ~10L voided over the last 3 days doesn't feel anything is getting worse afebrile ROS: 10 point ROS as noted above, otherwise negative Physical Exam: GEN: Alert, oriented, NAD HEENT: Normal conjunctiva, sclera anicteric, CV: Regular rate and rhythm, Bilateral lower extremity edema L > R Pulm: Nonlabored respirations on room air, clear bilaterally ABD: minimal discomfort on palpation, mild-mod abdominal distention, +ascites Integumentary: erythema diffusely of left upper thigh, with medial/posterior induration; erythema / induration improving Neuro: Normal speech, normal affect Problem List: left lower extremity / thigh cellulitis gram positive bacteremia Bilateral lower extremity edema, L > R cirrhosis of the liver / hx of alcohol abuse Mild right-sided hydronephrosis; incidental hx of Hepatitis C and B elevated LFTs h/o inguinal hernia left lower extremity / thigh cellulitis gram positive bacteremia Bilateral lower extremity edema, L > R Foot xray (08/16): Diffuse soft tissue swelling of the dorsum of the foot with suggestion of subtle ulceration. No underlying acute bony abnormality. venous u/s (08/16): no DVT blood cx (08/17): Streptococcus Dysgalactiae in 2/4 bottles repeat blood cx (08/19): pending IV rocephin / doxy (08/17-08/18) switched to zosyn (08/18-) per ID recs continue IV zosyn (08/18-) will discuss with ID, suspect switch to rocephin afebrile, leukocytosis resolved Final abx choice pending culture results. ID recommending at least 2 weeks abx ID consulted significant urine output last few days. ~10L voided over the last 3 days per I/Os continue IV lasix BID; increased 08/17, and will decrease to 20mg IV BID from 40 continue Spironolactone; increased 08/17 edema improving Keep lower extremities elevated PRN analgesics / antiemetics cirrhosis of the liver / hx of alcohol abuse Mild right-sided hydronephrosis; incidental hx of Hepatitis C and B elevated LFTs Patient has history of cirrhosis. Reported stopping alcohol several years ago. Had scheduled follow up appointment with GI earlier this week. Missed due to being hospitalized abdominal u/s (08/16): cirrhotic liver morphology with evidence of portal hypertension including splenomegaly. Distended gallbladder with mild gallbladder wall thickening and trace pericholecystic fluid. mild right-sided hydronephrosis Trend LFTs VTE: Lovenox Code: Full Dispo: Home, ~2-3 days Pending repeat blood cx without growth, edema improves, final abx choice
[2023-08-20] MEDS: CEFTRIAXONE 2,000 MG in NA CHLORIDE 0.9% 100 ML IV SCH (13:40)
[2023-08-20] MEDS: FUROSEMIDE 20 MG/ 2ML VIAL IV SCH (16:42)
[2023-08-20] MEDS: HYDROCODONE/APAP 5/325 MG TAB PO PRN (20:30)
[2023-08-21 04:45] LABS: Albumin 1.8 g/dL (3.4-5.0); Albumin/Globulin Ratio 0.4 (1.1-1.8); Anion Gap 5.9 mEq/L (5.0-15.0); Bilirubin Total 0.6 mg/dL (0.2-1.0); Globulin 4.3 g/dL (2.3-3.5); Magnesium 2.1 mg/dL (1.6-2.4); Potassium 3.9 mEq/L (3.5-5.1); Protein, Total 6.1 g/dL (6.4-8.2)
[2023-08-21] MEDS: POTASSIUM CL SA 10 MEQ TAB PO ONE (08:04)
[2023-08-21] MEDS: Mupirocin NASAL 2 APPL/1 GM TUBE NAS SCH (08:05)
--- NOTE | 2023-08-21 08:26 | P.PN ---
Date of Service: 08/21/23 Subjective: Feeling better each day. Doesn't feel anything is getting worse Feels lower extremity swelling is improving, +not as indurated today. Area is softer to touch no acute events overnight no BM in ~2 days afebrile ROS: 10 point ROS as noted above, otherwise negative Physical Exam: GEN: Alert, oriented, NAD HEENT: Normal conjunctiva, sclera anicteric, CV: Regular rate and rhythm, Bilateral lower extremity edema L > R Pulm: Nonlabored respirations on room air, clear bilaterally ABD: minimal discomfort on palpation, mild-mod abdominal distention, +ascites Integumentary: erythema diffusely of left upper thigh, with medial/posterior induration; erythema / induration improving Neuro: Normal speech, normal affect Problem List: left lower extremity / thigh cellulitis gram positive bacteremia Bilateral lower extremity edema, L > R cirrhosis of the liver / hx of alcohol abuse Mild right-sided hydronephrosis; incidental hx of Hepatitis C and B elevated LFTs h/o inguinal hernia Constipation left lower extremity / thigh cellulitis gram positive bacteremia Bilateral lower extremity edema, L > R Foot xray (08/16): Diffuse soft tissue swelling of the dorsum of the foot with suggestion of subtle ulceration. No underlying acute bony abnormality. venous u/s (08/16): no DVT blood cx (08/17): Streptococcus Dysgalactiae in 2/4 bottles repeat blood cx (08/19): NGTD IV 1g rocephin / doxy (08/17-08/18) switched to zosyn (08/18-) per ID recs Zosyn switched back to IV rocephin at 2g given culture sensitivity Continue IV rocephin 2gm daily (-08/31) PICC line ordered 08/20 for IV antibiotics. End date for antibiotics: 09/01/23. afebrile, leukocytosis resolved ID following significant urine output last few days. >10L voided over the last 3 days per I/Os continue IV lasix BID; decreased to 20mg IV BID from 40 () continue Spironolactone; increased 08/17 edema improving Keep lower extremities elevated PRN analgesics / antiemetics cirrhosis of the liver / hx of alcohol abuse Mild right-sided hydronephrosis; incidental hx of Hepatitis C and B elevated LFTs Patient has history of cirrhosis. Reported stopping alcohol several years ago. Had scheduled follow up appointment with GI earlier this week. Missed due to being hospitalized. Advised to reschedule appointment and to follow up with GI as outpatient on discharge as previously planned. abdominal u/s (08/16): cirrhotic liver morphology with evidence of portal hypertension including splenomegaly. Distended gallbladder with mild gallbladder wall thickening and trace pericholecystic fluid. mild right-sided hydronephrosis LFTs slightly improved 08/20. Trend LFTs Constipation PRN lactulose BID VTE: Lovenox Code: Full Dispo: Home with HH, Anticipate discharge tomorrow if PICC line & abx can be setup vs Thursday ss/cm consulted
--- NOTE | 2023-08-22 08:47 | P.PN ---
Date of Service: 08/22/23 Subjective: Feeling better today scrotal and lower extremity edema both significantly improving; +discoloration improving no acute events overnight small BM yesterday afebrile ROS: 10 point ROS as noted above, otherwise negative Physical Exam: GEN: Alert, oriented, NAD HEENT: Normal conjunctiva, sclera anicteric, CV: Regular rate and rhythm, Bilateral lower extremity edema L > R Pulm: Nonlabored respirations on room air, clear bilaterally ABD: minimal discomfort on palpation, mild abdominal distention, +ascites Integumentary: erythema diffusely of left upper thigh, with medial/posterior induration; erythema / induration improving Neuro: Normal speech, normal affect PICC in place Problem List: left lower extremity / thigh cellulitis gram positive bacteremia Bilateral lower extremity edema, L > R cirrhosis of the liver / hx of alcohol abuse Mild right-sided hydronephrosis; incidental hx of Hepatitis C and B elevated LFTs h/o inguinal hernia Constipation left lower extremity / thigh cellulitis gram positive bacteremia Bilateral lower extremity edema, L > R Foot xray (08/16): Diffuse soft tissue swelling of the dorsum of the foot with suggestion of subtle ulceration. No underlying acute bony abnormality. venous u/s (08/16): no DVT blood cx (08/17): Streptococcus Dysgalactiae in 2/4 bottles repeat blood cx (08/19): NGTD IV 1g rocephin / doxy (08/17-08/18) switched to zosyn (08/18-) per ID recs Zosyn switched back to IV rocephin at 2g given culture sensitivity Continue IV rocephin 2gm daily (-08/31) PICC line placed 08/20 for IV antibiotics. End date for antibiotics: 09/01/23. CXR (08/20): noted PICC likely in SVC - reviewed image okay to use PICC afebrile, leukocytosis resolved ID following significant urine output last few days. >20L voided since admission continue IV lasix BID; decreased to 20mg IV BID from 40 () continue Spironolactone; increased 08/17 edema improving Keep lower extremities elevated PRN analgesics / antiemetics cirrhosis of the liver / hx of alcohol abuse Mild right-sided hydronephrosis; incidental hx of Hepatitis C and B elevated LFTs Patient has history of cirrhosis. Reported stopping alcohol several years ago. Had scheduled follow up appointment with GI earlier this week. Missed due to being hospitalized. Advised to reschedule appointment and to follow up with GI as outpatient on discharge as previously planned. abdominal u/s (08/16): cirrhotic liver morphology with evidence of portal hypertension including splenomegaly. Distended gallbladder with mild gallbladder wall thickening and trace pericholecystic fluid. mild right-sided hydronephrosis LFTs slightly improved 08/20. Trend LFTs Constipation PRN lactulose BID colace BID added 08/21 VTE: Lovenox Code: Full Dispo: Home with HH, Anticipate discharge Thursday needs IV abx setup at home prior to dc - difficult to do over the weekend ss/cm consulted
[2023-08-22] MEDS: DOCUSATE NA 100 MG CAP PO SCH (09:37)
[2023-08-22 11:03] LABS: Potassium 4.1 mEq/L (3.5-5.1)
[2023-08-23 06:14] LABS: Albumin 1.7 g/dL (3.4-5.0); Albumin/Globulin Ratio 0.4 (1.1-1.8); Anion Gap 7.1 mEq/L (5.0-15.0); Bilirubin Total 0.8 mg/dL (0.2-1.0); Globulin 4.5 g/dL (2.3-3.5); Potassium 4.1 mEq/L (3.5-5.1); Protein, Total 6.2 g/dL (6.4-8.2)
[2023-08-23] MEDS: FUROSEMIDE 40 MG TABLET PO SCH (08:04)
--- NOTE | 2023-08-23 08:58 | P.PN ---
Date of Service: 08/23/23 Subjective: Scrotal and lower extremity edema continues to improve daily Abdomen feels softer on exam today doesn't feel anything is getting worse no acute events overnight afebrile ROS: 10 point ROS as noted above, otherwise negative Physical Exam: GEN: Alert, oriented, NAD HEENT: Normal conjunctiva, sclera anicteric, CV: Regular rate and rhythm, Bilateral lower extremity edema L (1-2+)> R (1+) Pulm: Nonlabored respirations on room air, clear bilaterally ABD: minimal discomfort on palpation, minimal abdominal distention, +ascites Integumentary: minimal erythema of left upper thigh, with mild medial/posterior induration; erythema / induration improving Neuro: Normal speech, normal affect PICC in place Problem List: left lower extremity / thigh cellulitis gram positive bacteremia Bilateral lower extremity edema, L > R cirrhosis of the liver / hx of alcohol abuse Mild right-sided hydronephrosis; incidental hx of Hepatitis C and B elevated LFTs h/o inguinal hernia Constipation left lower extremity / thigh cellulitis gram positive bacteremia Bilateral lower extremity edema, L > R Foot xray (08/16): Diffuse soft tissue swelling of the dorsum of the foot with suggestion of subtle ulceration. No underlying acute bony abnormality. venous u/s (08/16): no DVT blood cx (08/17): Streptococcus Dysgalactiae in 2/4 bottles repeat blood cx (08/19): NGTD IV 1g rocephin / doxy (08/17-08/18) switched to zosyn (08/18-) per ID recs Zosyn switched back to IV rocephin at 2g given culture sensitivity Continue IV rocephin 2gm daily (-08/31) PICC line placed (08/20) for IV antibiotics. End date for antibiotics: 09/01/23. CXR (08/20): noted PICC likely in C - reviewed image okay to use PICC afebrile, leukocytosis resolved ID following significant urine output last few days. >20L voided since admission IV lasix 20 mg BID switched to PO lasix 40 mg BID (08/22) continue PO Spironolactone; increased (08/17) edema improving Keep lower extremities elevated PRN analgesics / antiemetics cirrhosis of the liver / hx of alcohol abuse Mild right-sided hydronephrosis; incidental hx of Hepatitis C and B elevated LFTs Patient has history of cirrhosis. Reported stopping alcohol several years ago. Had scheduled follow up appointment with GI earlier this week. Missed due to being hospitalized. Advised to reschedule appointment and to follow up with GI as outpatient on discharge as previously planned. abdominal u/s (08/16): cirrhotic liver morphology with evidence of portal hypertension including splenomegaly. Distended gallbladder with mild gallbladder wall thickening and trace pericholecystic fluid. mild right-sided hydronephrosis Trend LFTs LFTs stable Constipation PRN lactulose BID colace BID added 08/21 VTE: Lovenox Code: Full Dispo: Home with HH, Anticipate discharge Thursday needs IV abx setup at home prior to dc - difficult to do over the weekend ss/cm consulted
[2023-08-23 10:50] LABS: Phosphorus 2.9 mg/dL (2.5-4.9); Potassium 4.4 mEq/L (3.5-5.1)
--- NOTE | 2023-08-23 11:28 | RAD REPORT ---
EXAM DESCRIPTION: RAD - Chest Single View - 08/21/2023 11:23 pm CLINICAL HISTORY: PICC PLACEMENT COMPARISON: None TECHNIQUE: Single AP view of the chest. FINDINGS: Right upper extremity PICC tip likely in the SVC. Lung volumes adequate. Cardiac silhouette is normal in size. No pneumothorax. No large pleural effusion. No focal consolidation. No acute bony finding. IMPRESSION: 1. No acute cardiopulmonary findings. 2. Right upper extremity PICC tip likely in the SVC. Electronically signed by: Bin Johnson MD 08/21/2023 11:30 PM DISABILITY BENEFITS SPECIALIST Due to temporary technical issues with the PACS/Fluency reporting system, reports are being signed by the in house radiologists without review as a courtesy to insure prompt reporting. The interpreting radiologist is fully responsible for the content of the report.
[2023-08-24 08:28] LABS: Absolute Basophils 0.1 K/uL (0-0.5); Absolute Eosinophils 0.3 K/uL (0-0.5); Absolute Lymphocytes (CBC) 0.9 K/uL (0.7-4.9); Absolute Monocytes 0.6 K/uL (0.1-1.3); Basophils % 1.3 % (0-1.3); Eosinophils % 5.4 % (0-4.4); Hematocrit 32.6 % (39.6-49.0); Hemoglobin 11.1 g/dL (13.6-17.9); Lymphocytes % 15.8 % (15.3-44.8); MCH 34.9 pg (27.0-35.0); MCV 102.5 fL (80-100); MPV 7.9 fL (7.6-11.3); Monocytes % 9.9 % (3.3-12.3); Neutrophils % 67.6 % (41.7-73.7); Nucleated Red Blood Cells % 0.1 % (0-0); Platelets 106 thou/uL (152-406); RBC Red Blood Cell Count 3.18 M/uL (4.33-5.43); Red Cell Distribution Width 14.9 % (12.1-15.2)
[2023-08-24 08:57] LABS: Albumin 1.8 g/dL (3.4-5.0); Albumin/Globulin Ratio 0.4 (1.1-1.8); Bilirubin Total 0.7 mg/dL (0.2-1.0); Globulin 4.4 g/dL (2.3-3.5); Protein, Total 6.2 g/dL (6.4-8.2)
--- NOTE | 2023-08-24 09:31 | P.PN ---
Date of Service: 08/24/23 Chief Complaint: Lower extremity swelling, left leg pain Subjective: Patient sitting up on side of bed. Denies any new or worsening complaints at this time. Overall improving. Physical Examination Temp Pulse Resp BP Pulse Ox 97.6 F 66 18 123/63 98 08/24/23 04:00 08/24/23 04:00 08/24/23 06:35 08/24/23 04:00 08/24/23 06:35 General: Alert, In no apparent distress, Oriented x3 HEENT: Atraumatic, Normocephalic. Respiratory: Clear to auscultation bilaterally, Normal air movement. On room air. Cardiovascular: Regular rate/rhythm, BLE edema. Gastrointestinal: Normal bowel sounds. Non-tender. Integumentary: Tenderness/swelling left lower extremity. Neurological: Normal speech Laboratory Data - Reviewed Microbiology Data - Reviewed Imagings Data: - Reviewed Medications List: Reviewed Assessment and Plan Problem List Cellulitis, left lower extremity Gram-Positive Bacteremia Cirrhosis Hx hepatitis C Hx hepatitis B Cellulitis, left lower extremity Streptococcus dysgalactiae Bacteremia - Blood cultures 08/17: Streptococcus dysgalactiae in 2 of 4 bottles. - Previously on Zosyn (08/19-) - Currently on Rocephin 2g IV q24h. - Venous ultrasound 08/16: "No evidence of deep venous thrombosis involving either lower extremity." - Abdominal ultrasound 08/17: "Cirrhotic liver morphology with evidence of portal hypertension including splenomegaly. No focal mass. Distended gallbladder with mild gallbladder wall thickening and trace pericholecystic fluid which could be related to underlying liver disease rather than cholecystitis. Mild right-sided hydronephrosis. This is of uncertain etiology." - Repeat blood cultures 08/19: no growth to date. Recommendations - Strep bacteremia/cellulitis: continue antibiotic therapy for 14 days (- 08/31) - On Rocephin. PICC line in place. - Keep legs elevated. - continue diuretics - pain management per primary team - cirrhosis, hx hepatitis: follow up with GI as outpatient Case discussed with Denisha Grant
--- NOTE | 2023-08-24 11:06 | P.DS ---
Admission Date: 08/16/23 Discharge Date: 08/24/23 Primary Care Provider: Dr. Thurman Disposition: ROUTINE DISCHARGE Discharge Condition: GOOD Reason for Admission: Lower extremity swelling, left leg pain Consultations: ID - Dr. Babcock Brief History of Present Illness: 53yo M, PMH: cirrhosis liver, hepatitis C, hep B Patient presented to the ER with worsening of lower extremity swelling which has been progressively hurting worse for the last few days associated with left leg pain. Denies any trauma. Patient is not taking any medications at home for leg pain/swelling. Denies any fever or chills. No nausea vomiting or diarrhea. Denies any chest pain or shortness of breath. Patient noticed that the swelling of bilateral lower extremities is progressing and is extending into the abdomen too. Denies any abdominal pain. Denies any dysuria. Patient was assessed in the ER and was noticed to have bilateral lower extremities swelling associated with ascites and left lower extremity cellulitis. Doppler was negative for DVT. Hospital Course: Problem List: left lower extremity / thigh cellulitis gram positive bacteremia Ascites, Bilateral lower extremity edema, L > R secondary to cirrhosis of the liver / hx of alcohol abuse Mild right-sided hydronephrosis; incidental hx of Hepatitis C and B elevated LFTs, stable h/o inguinal hernia Constipation Patient presented to ED with diffuse erythema with induration of lower left thigh, bilateral lower extremity swelling L > R, most consistent with cellulitis of his thigh secondary to increased edema and ascites due to cirrhosis. Negative for DVT. He received empiric iv rocephin and doxycycline, but had no improvement. ID was consulted and he was switched to Zosyn on 08/18. 2 of 4 blood cultures eventually grew streptococcus dysgalactiea, and repeat cultures were negative. He had improvement of his swelling and cellulitis. He was de-escalated to rocephin 2g daily per ID recommendations. To complete a total of 2 weeks (end date 09/01/23). PICC line was placed 08/20 for continued IV abx at home. Patient was noted to have significant amount of bilateral lower extremity edema on admission greater on the left side and was deemed secondary to liver cirrhosis. Patient was given IV lasix along with PO aldactone and had gradual improvement with time. Patient is to continue lasix 40 mg daily and new prescription sent for aldactone 100 mg daily on discharge. Advised to check weight daily around the same time each day. If you notice > 2 lb weight gain over 24 hours, can take extra dose of lasix for that day. Recommend follow up with PCP and cardiology in next few weeks for further management / adjustments of medications. AST/ALT/Alk phos were noted to be elevated on admission - 105 / 77 / 291 respectively. LFTs slightly improved with time and remained stable throughout hospitalization. LFTs on discharge: 79 / 54 / 222 (AST/ALT/Alk phos respectively) Patient is noted to have a history of cirrhosis and reported he had a follow up appointment earlier this week with his GI doctor that he missed due to being hospitalized. Abdominal ultrasound noted cirrhotic liver morphology with evidence of portal hypertension including splenomegaly. Distended gallbladder with mild gallbladder wall thickening and trace pericholecystic fluid. mild right-sided hydronephrosis. Advised to reschedule appointment and follow up with GI in near future as previously planned. Recommend repeat blood work in ~1 week to monitor LFTs. Medications: Rocephin 2g daily (end date: 09/01/23) Lasix 40mg daily Aldactone 100 mg daily Tylenol #3 as needed for pain Follow up: PCP 3-5 days GI in 2-4 weeks Cardiology 2-4 weeks Physical Exam: GEN: Alert, oriented, NAD HEENT: Normal conjunctiva, sclera anicteric, CV: Regular rate and rhythm, Bilateral lower extremity edema L 1+, L slightly >R Pulm: Nonlabored respirations on room air, clear bilaterally ABD: non-tender minimal abdominal distention, +ascites Neuro: Normal speech, normal affect Vital Signs/Physical Exam: Temp Pulse Resp BP Pulse Ox 97.1 F 66 17 115/55 L 97 08/24/23 08:00 08/24/23 09:48 08/24/23 08:00 08/24/23 09:48 08/24/23 08:00 Laboratory Data at Discharge: WBC 5.90 thou/uL (4.3-10.9) 08/24/23 08:15 Hgb 11.1 g/dL (13.6-17.9) L 08/24/23 08:15 Hct 32.6 % (39.6-49.0) L 08/24/23 08:15 Plt Count 106 thou/uL (152-406) L 08/24/23 08:15 PT 14.7 SECONDS (9.5-12.5) H 08/16/23 19:05 INR 1.35 08/16/23 19:05 Sodium 137 mEq/L (136-145) 08/24/23 08:15 Potassium 4.0 mEq/L (3.5-5.1) 08/24/23 08:15 BUN 14 mg/dL (7-18) 08/24/23 08:15 Creatinine 0.64 mg/dL (0.70-1.30) L 08/24/23 08:15 Glucose 108 mg/dL (74-106) H 08/24/23 08:15 Phosphorus 2.9 mg/dL (2.5-4.9) 08/23/23 10:25 Magnesium 2.0 mg/dL (1.6-2.4) 08/24/23 08:15 Total Bilirubin 0.7 mg/dL (0.2-1.0) 08/24/23 08:15 AST 79 U/L (15-37) H 08/24/23 08:15 ALT 54 U/L (16-61) 08/24/23 08:15 Alkaline Phosphatase 222 U/L (45-117) H 08/24/23 08:15 Home Medications: Codeine/APAP [Tylenol W/Codeine #3 tab] 1 tab PO Q6HP PRN #10 tab 08/24/23 Furosemide 40 mg PO DAILY 30 Days #30 tab 08/24/23 Spironolactone 100 mg PO DAILY 30 Days #30 tab 08/24/23 New Medications: Codeine/APAP [Tylenol W/Codeine #3 tab] 1 tab PO Q6HP PRN #10 tab PRN Reason: Pain Furosemide 40 mg PO DAILY 30 Days #30 tab Spironolactone 100 mg PO DAILY 30 Days #30 tab Physician Discharge Instructions: Physician Discharge Instructions: Patient presented to ED with diffuse erythema with induration of lower left thigh, bilateral lower extremity swelling L > R, most consistent with cellulitis of his thigh secondary to increased edema and ascites due to cirrhosis. Negative for DVT. He received empiric iv rocephin and doxycycline, but had no improvement. ID was consulted and he was switched to Zosyn on 08/18. 2 of 4 blood cultures eventually grew streptococcus dysgalactiea, and repeat blood cultures were negative. He had improvement of his swelling and cellulitis. He was de-escalated to rocephin 2g daily per ID recommendations. To complete a total of 2 weeks (end date 09/01/23). PICC line was placed 08/20 for continued IV abx at home. Patient was noted to have significant amount of bilateral lower extremity edema on admission greater on the left side and was deemed secondary to liver cirrhosis. Patient was given IV lasix along with PO aldactone and responded well, eventually titrated down to oral lasix/aldactone. Patient is to continue lasix 40 mg daily and new prescription sent for aldactone 100 mg daily on discharge. Recommend follow up with PCP and cardiology in next few weeks for further management / adjustments of medications. AST/ALT/Alk phos were noted to be elevated on admission - 105 / 77 / 291 respec tively. LFTs slightly improved with time and remained stable throughout hospitalization. LFTs on discharge: 79 / 54 / 222 (AST/ALT/Alk phos respectively) Patient is noted to have a history of cirrhosis and reported he had a follow up appointment earlier this week with his GI doctor that he missed due to being hospitalized. Abdominal ultrasound noted cirrhotic liver morphology with evidence of portal hypertension including splenomegaly. Advised to reschedule appointment and follow up with GI in near future as previously planned. Recommend repeat blood work in ~1 week to monitor LFTs. Medications: Rocephin 2g daily (end date: 09/01/23) Lasix 40mg daily Aldactone 100 mg daily Tylenol #3 as needed for pain Follow up: PCP 3-5 days GI in 2-4 weeks Cardiology 2-4 weeks Followup: Spike Thurman DO [Primary Care Provider] - Ranjit Mccarty MD [ACTIVE - CAN ADMIT] - Time spent managing pt's care (in minutes): 45
[2023-08-24 12:16] VITALS: O2SAT 97
[2023-08-24 12:23] LABS: Phosphorus 3.5 mg/dL (2.5-4.9); Potassium 4.2 mEq/L (3.5-5.1)
[2023-08-24 13:22] VITALS: BP 126/67; TEMP 97.3
== END 2023-08-24 13:37 | disposition home or self-care (01) | DRG 603 ==
LOC: ER 17:29 → ERHOLD 23:54 → 2ND 08-17 07:24
PROVIDERS: ADMIT Family Medicine; ATTEND Hospitalist
PROC: 02HV33Z Insertion of Infusion Device into Superior Vena Cava, Percutaneous Approach (ICD-10-PCS; principal; 2023-08-21)
DX: L03.116 Cellulitis of left lower limb (principal); R18.8 Other ascites; R78.81 Bacteremia; N13.30 Unspecified hydronephrosis; K74.60 Unspecified cirrhosis of liver; E87.6 Hypokalemia; F17.210 Nicotine dependence, cigarettes, uncomplicated; B95.4 Other streptococcus as the cause of diseases classified elsewhere; R74.01 Elevation of levels of liver transaminase levels; K59.00 Constipation, unspecified; Z79.899 Other long term (current) drug therapy
CPT/HCPCS: 36415; 71045; 76700; 80048; 80053; 80076; 80307; 81003; 82947; 83605; 83735; 83880; 84100; 84132; 84484; 85025; 85610; 87040; 87077; 87186; 87205; 93005; 93970; 94760; 96374; 96375; 99284; 99285; G0378; J0696; J1650; J1940; J2543; J7050

== ENCOUNTER 2023-12-09 21:54 | Emergency (ER) | payer OTHER ==
[2023-12-09] MEDS ORDERED: ONDANSETRON 4 MG/2 ML VIAL ONE (21:57)
--- OUTSIDE RECORDS SUMMARY | 2023-12-09 21:57 | XMS REPORT | Continuity of Care Document ---
Author Name Unknown Address [address] [place] [address] th[address] Address [address] [place] [address]. 1 [address] [place] [address] Care Team Providers Care Gas Meter Reader Name Role Phone DANAY BARAJAS Attending Clinician Unavailable SYKLER LUNA Attending Clinician Unavailable ABRAN LIND Attending [...] Source [employer] MP [facility] O [employer] DIRECT[employer] 94 ON 9 [phone] 2023 00:00:00 [employer] (O) [phone] 2023 00:00:00 [employer] O [id number] 2023 00:00:00 Problems Condition Name Condition Details Condition Category Status Onset Date Resolution Date Last Treatment Date Treating Clinician Comments Source Acute bilateral low back pain without sciatica Acute bilateral low back pain without sciatica Disease Active 09-15 00:00: 00 Joyce Smith - Externa l History of cellulitis History of cellulitis Disease Active 09-15 00:00: 00 Joyce Smith - Externa l Edema of both lower extremitie s Edema of both lower extremitie s Disease Active 08-13 00:00: 00 Joyce Cantua junior Immunodefi 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 (multi 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) Disease Active 1-16 00:00: 00 Joyce Smith - Externa l History of hepatitis C History of hepatitis C Disease Active 2022-06 00:00: 00 Joyce Smith - Externa l Liver cirrhosis (multi HCC) Liver cirrhosis (multi HCC) Disease Active 2022-06 00:00: 00 Joyce Smith - Externa l History of alcohol abuse History of alcohol abuse Disease Active 2022-06 00:00: 00 Joyce Stone Externa l History of hepatitis B History of hepatitis B Disease Active 2022-06 00:00: 00 Joyce Stone Externa l Drug abuse, amphetamin e type Drug abuse, amphetamin e type Disease Active 2022-06 00:00: 00 Joyce Stone Externa junior Other stimulant dependence , uncomplica timmy (multi HCC) Other stimulant dependence , uncomplica timmy (multi HCC) Disease Active 03-17 00:00: 00 Joyce Smith - Externa junior Social History Social Habit Start Date Stop Date Quantity Comments Source Sexual orientation Dexter Smith - External History of tobacco use Cigarette Smoker Joyce sam - External Alcohol intake 2023-09-16 00:00:00 2023-09-16 00:00:00 Ex-drinker (finding) Joyce Smith - External Cigarettes smoked current (pack per day) - Reported 2023-07-21 00:00:00 2023-07-21 00:00:00 Joyce Smith - External Tobacco use and exposure 2023-07-21 00:00:00 2023-07-21 00:00:00 Smokeless tobacco non-user Joyce Smith - External Cigarette pack-years 2023-07-21 00:00:00 2023-07-21 00:00:00 Joyce Smith - External Alcohol Comment 2023-06-16 00:00:00 2023-06-16 00:00:00 Sober since 2012. He was a heavy drinker in the past. Joyce Huddleston History of Social function 2023-06-16 00:00:00 2023-06-16 00:00:00 Joyce Smith - [place] Education - What is the highest level of school you have completed or the highest degree you have received? 2023-06-16 00:00:00 2023-06-16 00:00:00 GED or equivalent Joyce Huddleston Sex Assigned At 1970 00:00:00 1970 00:00:00 Joyce Stone External Smoking Status Start Date Stop Date Source Smokes tobacco daily 2023-07-21 00:00:00 Joyce Huddleston Medications Ordered Medication Name Filled Medication Name Start Date Stop Date Current Medication? Ordering Clinician Indication Dosage Frequency Signature (SIG) Comments Components Source Furosemide (Lasix) 40 MG oral Tablet 09-15 00:00: 00 Yes [id number] 40mg Take 1 tablet (40 mg total) by mouth 2 times daily. Joyce pacheco Spironolact one 100 MG oral Tablet 09-15 00:00: 00 Yes [id number] 100mg Take 1 tablet (100 mg total) by mouth daily. Joyce pacheco Acetaminoph en-Codeine 300-30 MG oral Tablet - 00:00: 00 09-15 00:00 :00 No 1{tbl} Q4H Take 1 tablet by mouth every 4 hours as needed for pain. Joyce pacheco Spironolact one 100 MG oral Tablet 3- 00:00: 00 09-15 00:00 :00 No 100mg Take 1 tablet (100 mg total) by mouth daily. Joyce pacheco Furosemide (Lasix) 40 MG oral Tablet 1-05 00:00: 00 09-15 00:00 :00 No [id number] 40mg Take 1 tablet (40 mg total) by mouth daily. Joyce pacheco Immunizations Ordered Immunization Name Filled Immunization Name Date Status Comments Source Covid-19 Vaccine Moderna (Spikevax), Mrna-lnp, Pillo Protein, Pf Unknown Completed Joyce Buiybold - External Covid-19 Vaccine Moderna (Spikevax), Mrna-lnp, Pillo Protein, Pf Unknown Completed Joyce Seybold - External Covid-19 Vaccine Moderna (Spikevax), Mrna-lnp, Pillo Protein, Pf Unknown Completed Joyce Buiybold - External Covid-19 Vaccine Moderna (Spikevax), Mrna-lnp, Pillo Protein, Pf Unknown Completed Joyce Seybold - External Covid-19 Vaccine Moderna (Spikevax), Mrna-lnp, Pillo Protein, Pf Unknown Completed Joyce Seybold - External Covid-19 Vaccine Moderna (Spikevax), Mrna-lnp, Pillo Protein, Pf Unknown Completed Joyce Buiybold - External Vital Signs Vital Name Observation Time Observation Value Comments S ource Systolic blood pressure 2023-09-16 20:00:00 140 mm[Hg] Joyce Buiybo ld - External Diastolic blood pressure 2023-09-16 20:00:00 76 mm[Hg] Joyce Buiybo ld - External Heart rate 2023-09-16 20:00:00 95 /min Rahat kaminski Seybold - External Body temperature 2023-09-16 20:00:00 35.89 Lisa Joyce Buiybold - External Respiratory rate 2023-09-16 20:00:00 20 /min Joyce Buiybold - External Body height 2023-09-16 20:00:00 172.7 cm Tyra mendieta Seybold - External Body weight 2023-09-16 20:00:00 82.555 kg Tyra mendieta Seybold - External BMI 2023-09-16 20:00:00 27.67 kg/m2 Tyra mendieta Seybold - External Systolic blood pressure 2023-07-21 15:25:00 117 mm[Hg] Joyce Buiybo ld - External Diastolic blood pressure 2023-07-21 15:25:00 70 mm[Hg] Joyce Buiybo ld - External Heart rate 2023-07-21 15:03:00 78 /min Fadise y Seybold - External Body temperature 2023-07-21 15:03:00 35.83 Lisa Joyce Seybold - External Respiratory rate 2023-07-21 15:03:00 20 /min Joyce Seybold - External Body height 2023-07-21 15:03:00 172.7 [...] External Heart rate 2023-06-16 17:07:00 86 /min Rahat y Seybold - External Body temperature 2023-06-16 [...] Date/Time Encounter Type Admission Type Attending [facility] Care Department Encounter ID Source 2023-12-10 15:00:00 2023-12-10 15:00:00 Outpatient DANAY BARAJAS [id number] Joyce Smith 2023-11-25 00:00:00 2023-11-25 00:00:00 Outpatient JOYCE DRAKE [id number] Joyce Smith 2023-11-19 00:00:00 2023-11-19 00:00:00 Outpatient JOYCE JOYCE [id number] Joyce Seybold 2023-11-12 00:00:00 2023-11-12 00:00:00 Outpatient JOYCE JOYCE [id number] Joyce Seybold 2023-11-12 00:00:00 2023-11-12 00:00:00 Outpatient JOYCE JOYCE [id number] Joyce Seybold 2023-11-02 00:00:00 2023-11-02 00:00:00 Outpatient PREZAS, DANAY DRAKE JOYCE [id number] Joyce Seybold 2023-10-26 00:00:00 2023-10-26 00:00:00 Outpatient PREZAS, DANAY DRAKE JOYCE [id number] Joyce Seybold 2023-10-23 00:00:00 2023-10-23 00:00:00 Outpatient PREZAS, DANAY [facility] [id number] [facility]-20 09:00:00 2023-10-20 09:00:00 Outpatient PREZAS, DANAY DRAKE [facility] [id number] [facility] 2023-10-12 00:00:00 2023-10-12 00:00:00 Outpatient PREZAS, DANAY DRAKE JOYCE [id number] Joyce Seybold 2023-10-05 00:00:00 2023-10-05 00:00:00 Outpatient PREZAS, DANAY JOYCE DRAKE [id number] Joyce Seybold 2023-10-02 00:00:00 2023-10-02 00:00:00 Outpatient JOYCE DRAKE [id number] Joyce Seybold 2023-10-01 00:00:00 2023-10-01 00:00:00 Outpatient PREZAS, DANAY JOYCE DRAKE [id number] Joyce Seybold 2023-10-01 00:00:00 2023-10-01 00:00:00 Outpatient JOYCE DRAKE [id number] Joyce Seybold 2023-09-29 00:00:00 2023-09-29 00:00:00 Outpatient PREZASDANAY JOYCE DRAKE [id number] Joyce Seybold 2023-09-28 00:00:00 2023-09-28 00:00:00 Outpatient PREZAS, DANAY DRAKE JOYCE [id number] Joyce Seybold 2023-09-23 00:00:00 2023-09-23 00:00:00 Outpatient PREZAS, DANAY DRAKE JOYCE [id number] Joyce Seybold 2023-09-23 00:00:00 2023-09-23 00:00:00 Outpatient PREZAS, DANAY DRAKE JOYCE [id number] Joyce Seybold 2023-09-16 16:30:00 2023-09-16 16:30:00 Outpatient PREZAS, DANAY DRAKE JOYCE [id number] Joyce Seybold 2023-09-11 00:00:00 2023-09-11 00:00:00 Outpatient PREZAS, DANAY JOYCE DRAKE [id number] Joyce Seybold 2023-09-10 16:15:00 2023-09-10 16:15:00 Outpatient PREZAS, DANAY DRAKE JOYCE [id number] Joyce Seybold 2023-09-03 14:00:00 2023-09-03 14:00:00 Outpatient PREZAS, DANAY JOYCE DRAKE [id number] Joyce Seybold 2023-09-03 00:00:00 2023-09-03 00:00:00 Outpatient PREZAS, DANAY JOYCE DRAKE [id number] Joyce Seybold 2023-09-03 00:00:00 2023-09-03 00:00:00 Outpatient PREZAS, DANAY JOYCE DRAKE [id number] Joyce Seybold 2023-08-24 08:00:00 2023-08-24 08:00:00 Outpatient LUNASKLYER PIZARRO [id number] Joyce Seybold 2023-08-17 15:45:00 2023-08-17 15:45:00 Outpatient SKYLER LUNA [id number] Joyce Seybold 2023-08-14 13:30:00 2023-08-14 13:30:00 Outpatient ABRAN LIND [id number] Joyce Seybold 2023-08-14 00:00:00 2023-08-14 00:00:00 Outpatient PREZAS, DANAY JOYCE DRAKE [id number] Joyce Seybcecy 2023-08-13 16:15:00 2023-08-13 16:15:00 Outpatient PREZAS, DANAY JOYCE DRAKE [id number] Joyce Buiybold 2023-08-13 15:30:00 2023-08-13 15:30:00 Outpatient JONAH CAMARA JOYCE DRAKE [id number] Joyce Seybold 2023-08-13 14:30:00 2023-08-13 14:30:00 Outpatient GAMALIEL NUNN JOYCE DRAKE [id number] Joyce Seybold 2023-08-04 00:00:00 2023-08-04 00:00:00 Outpatient PREZAS, DANAY JOYCE DRAKE [id number] Joyce Seybold 2023-07-30 11:00:00 2023-07-30 11:00:00 Outpatient FLORIGUILLAUME JOYCE DRAKE [id number] Joyce Seybold 2023-07-30 00:00:00 2023-07-30 00:00:00 Outpatient PREZAS, DANAY JOYCE DRAKE [id number] Joyce Seybold 2023-07-22 00:00:00 2023-07-22 00:00:00 Outpatient PREZAS, DANAY JOYCE DRAKE [id number] Joyce Seybold 2023-07-21 09:15:00 2023-07-21 09:15:00 Outpatient PREZAS, DANAY JOYCE DRAKE [id number] Joyce Seybold 2023-07-21 00:00:00 2023-07-21 00:00:00 Outpatient JOYCE DRAKE [id number] Joyce Seybold 2023-07-08 00:00:00 2023-07-08 00:00:00 Outpatient JOYCE DRAKE [id number] Joyce Seybcecy 2023-07-07 00:00:00 2023-07-07 00:00:00 Outpatient JOYCE DRAKE [id number] Joyce Seybold 2023-07-07 00:00:00 2023-07-07 00:00:00 Outpatient MD JOYCE SAMS [id number] [facility] 2023-07-06 00:00:00 2023-07-06 00:00:00 Outpatient DANAY BARAJAS JOYCE DRAKE [id number] [facility] 2023-07-06 00:00:00 2023-07-06 00:00:00 Outpatient MD JOYCE SAMS [id number] [facility] 2023-06-30 14:20:00 2023-06-30 14:20:00 Outpatient LACHELLE SAUCEDA JOYCE DRAKE [id number] [facility] 2023-06-26 00:00:00 2023-06-26 00:00:00 Outpatient PREZADANAY Huggins JOYCE DRAKE [id number] [facility] 2023-06-26 00:00:00 2023-06-26 00:00:00 Outpatient PREZADANAY Huggins JOYCE DRAKE [id number] [facility] 2023-06-19 00:00:00 2023-06-19 00:00:00 Outpatient PREZASDANAY JOYCE DRAKE [id number] [facility] 2023-06-19 00:00:00 2023-06-19 00:00:00 Outpatient PREZADANAY Huggins JOYCE DRAKE [id number] [facility] 2023-06-16 11:15:00 2023-06-16 11:15:00 Outpatient PREZADANAY Huggins JOYCE DRAKE [id number] [facility] 2023-06-10 00:00:00 2023-06-10 00:00:00 Outpatient SISSON_C [facility] [id number] [facility] 2023-03-26 13:54:00 2023-03-26 21:54:00 Emergency SIA [facility] [id number] [facility] 2023-03-26 16:54:08 2023-03-26 19:57:48 Emergency SIA [facility] [id number] [facility] 2023-03-17 08:52:00 2023-03-17 13:04:00 Emergency 1 MORGAN JARRELL [facility] [id number] [facility] 2023-03-17 09:37:38 2023-03-17 09:58:55 Emergency [facility] [id number] [facility] Results Test Description Test Time Test Comments Results Result Co mments Source HHSHBV surface Ag SerPl Ql [id number] 19:34:05* Test Item Value Reference Range Interpretation Comme nts HBV surface Ag SerPl Ql Cfm (test code = 59760-2) Confirmed Positive Refer to result values A HHSHIV 1+2 Ab+HIV1 p24 Ag SerPl Ql [id number] 10:16:40* Test Item Value Reference Range Interpretation Comme nts HIV 1+2 Ab+HIV1 p24 Ag SerPl Ql IA (test code = 84146-8) NEGATIVE Negative [facility] Notes Date/Time Note Provider Source 2023-06-16 11:10:51 [id number]:10:51F ormatting of this note is different from the original.Chief ComplaintPatient presents withNew PatientMemory Loss06/12/23 [id number] [id number]:12:45Nurse [id number]. [id number] for patient [id number] NoteLNNARRATIVEFormatted C-CDA narrative textKELMemorial Health System [facility] [facility] Medical [id number] [id number]:12:[id number] 2.3.15|[id number]. [id number] [facility]"
[2023-12-09] MEDS ORDERED: MORPHINE 4 MG/ML SYR ONE (21:58)
[2023-12-09] MEDS ORDERED: NA CHLORIDE 0.9% 1,000 ML ONE (21:59)
[2023-12-09] MEDS ORDERED: NA CHLORIDE 0.9% 500 ML ONE (21:59)
[2023-12-09] MEDS ORDERED: PANTOPRAZOLE 40 MG INJ ONE (22:15)
[2023-12-09] MEDS ORDERED: CEFTRIAXONE 1000 MG/VIAL ONE (22:15)
[2023-12-09] MEDS ORDERED: NA CHLORIDE 0.9% 250 ML ONE (22:16)
[2023-12-09 22:49] LABS: PT Prothrombin Time 19.4 SECONDS (9.5-12.5); Protime INR 1.79
[2023-12-09 22:52] LABS: Absolute Basophils 0.1 K/uL (0-0.5); Absolute Lymphocytes (CBC) 0.7 K/uL (0.7-4.9); Absolute Monocytes 0.4 K/uL (0.1-1.3); Absolute Neutrophil 6.3 K/uL (1.8-8.0); Basophils % 0.7 % (0-1.3); Eosinophils % 0.6 % (0-4.4); Hematocrit 23.2 % (39.6-49.0); Lymphocytes % 9.1 % (15.3-44.8); MCHC 34.3 g/dL (32.0-36.0); MPV 8.4 fL (7.6-11.3); Monocytes % 5.5 % (3.3-12.3); Neutrophils % 84.1 % (41.7-73.7); Nucleated Red Blood Cells % 0.1 % (0-0); Platelets 135 thou/uL (152-406); RBC Red Blood Cell Count 2.27 M/uL (4.33-5.43); Red Cell Distribution Width 14.2 % (12.1-15.2)
[2023-12-09 23:07] LABS: Albumin 1.9 g/dL (3.4-5.0); Albumin/Globulin Ratio 0.6 (1.1-1.8); Anion Gap 10.4 mEq/L (5.0-15.0); Bilirubin Direct 0.4 mg/dL (0-0.2); Bilirubin Indirect, Calculated 1.1 mg/dL (0.2-0.8); Bilirubin Total 1.5 mg/dL (0.2-1.0); Globulin 3.2 g/dL (2.3-3.5); Magnesium 1.6 mg/dL (1.6-2.4); Potassium 4.4 mEq/L (3.5-5.1); Protein, Total 5.1 g/dL (6.4-8.2)
[2023-12-09 23:43] LABS: Barbiturates NEGATIVE (NEGATIVE); Benzodiazepines NEGATIVE (NEGATIVE); Cocaine NEGATIVE (NEGATIVE); METHAMPHETAM POSITIVE (NEGATIVE); Methadone NEGATIVE (NEGATIVE); Opiates POSITIVE (NEGATIVE); Phencyclidine NEGATIVE (NEGATIVE); THC Cannibis NEGATIVE (NEGATIVE)
[2023-12-10] MEDS ORDERED: OCTREOTIDE ACETATE 500 MCG/ML ONE (00:03)
[2023-12-10] MEDS ORDERED: DIAZEPAM 10 MG/2 ML INJ SYRINGE ONE (00:15)
--- NOTE | 2023-12-10 00:25 | EDPHYS ---
Physician Documentation [facility] Name: Dennis Nova Age: 53 yrs Sex: Male : 1970 Arrival Date: 12/09/2023 Time: 21:54 Bed 4 Private MD: ED Physician Marshall Dutta HPI: 12/08 21:59 This 53 yrs old Male presents to ER via Unassigned with complaints of Post sp4 Surgical Bleeding, Post Surgical Pain. 22:35 53-year-old male presents with EMS with syncopal episode at home and acute dark red sp4 hematemesis. Patient reportedly had a right inguinal hernia repair on 11/27/2023 here at the hospital by Dr. Jimenez . Patient was found to have a large inguinal hernia direct and indirect components with small bowel contained. Patient had open right inguinal hernia with mesh repair with general endotracheal anesthesia. Today at home patient reportedly lifted a motorcycle developed's moderate to severe abdominal pain vomited blood and on EMS arrival patient developed seizure and syncopal episode. On arrival patient appears pale but he is not hypotensive. No tachycardia. Patient does have obvious blood bloody emesis in oropharynx and on his clothes. Patient has bilateral lower extremity edema. Patient unable to provide any history. He did report generalized abdominal pain and feeling weak. . Historical: - Allergies: 22:03 No Known Allergies; jb4 - PMHx: 22:03 Hepatitis; jb4 - PSHx: 22:03 hernia repair; jb4 - Immunization history:: Adult Immunizations unknown. - Infectious Disease History:: Denies. - Family history:: not pertinent. ROS: 22:35 Constitutional: Positive for hematemesis, positive for abdominal pain, positive for sp4 generalized weakness, positive for syncope, positive for seizure. 22:35 All other systems are negative, 22:35 Unable to obtain ROS due to patient being uncooperative, Exam: 22:35 Constitutional: This is a well developed, well nourished patient , ill-appearing, sp4 pale, not hypotensive, jaundiced appearing, bilateral lower extremity edema, abdominal ascites, obvious blood on the clothes and blood in the oropharynx from recent emesis. Head/Face: Normocephalic, atraumatic. Eyes: Pupils equal round and reactive to light, extra-ocular motions intact. Lids and lashes normal. Conjunctiva and sclera are not injected. Cornea within normal limits. Periorbital areas with no swelling, redness, or edema. ENT: Nares patent. No nasal discharge, no septal abnormalities noted. Tympanic membranes are normal and external auditory canals are clear. Oropharynx with no redness, swelling, or masses, exudates, or evidence of obstruction, uvula midline. Mucous membranes moist. Neck: Trachea midline, no thyromegaly or masses palpated, and no cervical lymphadenopathy. Supple, full range of motion without nuchal rigidity, or vertebral point tenderness. Chest/axilla: Normal chest wall appearance and motion. Nontender with no deformity. No lesions are appreciated. Cardiovascular: Regular rate and rhythm with a normal S1 and S2. No gallops, murmurs, or rubs. Normal PMI, no JVD. No pulse deficits. Respiratory: Lungs have equal breath sounds bilaterally, clear to auscultation and percussion. No rales, rhonchi or wheezes noted. No increased work of breathing, no retractions or nasal flaring. Abdomen/GI: Soft, with normal bowel sounds. No distension or tympany. No guarding or rebound. No evidence of tenderness throughout. Back: No spinal tenderness. No costovertebral tenderness. Male : Normal genitalia with no discharge or lesions. Right groin postoperative incision is clean dry and intact, no sign of inguinal hernia at this time, no sign of postop wound dehiscence. Skin: Warm, dry with normal turgor. Normal color with no rashes, no lesions, and no evidence of cellulitis. MS/ Extremity: Pulses equal, no cyanosis. Neurovascular intact. Full, normal range of motion. Neuro: Awake and alert, GCS 14, oriented to person, place, time, and situation. Cranial nerves II-XII grossly intact. Motor strength 5/5 in all extremities. Sensory grossly intact. Psych: Awake, alert, with orientation to person, place and time. Behavior, mood, and affect are within normal limits 23:42 ECG was reviewed by the Attending Physician. EKG at 2249 reveals normal sinus sp4 rhythm, prolonged QT, rate 90. Otherwise normal Vital Signs: 22:00 BP 102 / 89; Pulse 102; Resp 20; Temp 98.5(O); Pulse Ox 97% on NC; Weight 83.91 kg (M); jb4 23:23 BP 127 / 93; Pulse 93; Resp 13; Pulse Ox 100% on 2 lpm NC; jb4 12/09 00:45 BP 121 / 74; Pulse 123; Resp 20; Pulse Ox 100% on 2 lpm NC; jb4 01:30 BP 104 / 68; Pulse 125; Resp 19; Temp 98.5(O); Pulse Ox 100% on 2 lpm NC; jb4 02:45 BP 145 / 75; Pulse 123; Resp 20; Pulse Ox 98% on 2 lpm NC; jb4 Elvi Coma Score: 12/08 22:35 Eye Response: spontaneous(4). Motor Response: obeys commands(6). Verbal Response: sp4 confused(4). Total: 14. Procedures: 22:31 Central Line: the site was prepped with in sterile fashion, Hibiclens , a triple lumen sp4 catheter was inserted, in the left femoral vein, in 1 attempts. placement was verified, by blood return, Ultrasound guided central line , the site was dressed with 4X4s, Tegaderm, using sterile technique, the patient tolerated the procedure, well, Central line placed emergently secondary to very poor IV access and also secondary to active GI bleed. MDM: 21:59 Patient medically screened. sp4 23:47 Differential Diagnosis altered mental status. Data reviewed: vital signs, nurses notes, sp4 EMS record, old medical records, lab test result(s), EKG, radiologic studies, CT scan, plain films. Consideration of Admission/Observation Escalation of care including admission/observation considered. Management of patient was discussed with the following: Accepting physician at [facility]. ED course: TECHNIQUE: CT CHESTABDOMEN PELVIS WITH IV CONTRAST on 12/09/2023 9:58 PM CDT. MIPS reconstructions were generated. This exam was performed according to our departmental dose-optimization program, which includes automated exposure control, adjustment of the mA and/or kV according to patient size and/or use of iterative reconstruction technique. FINDINGS: Vascular: Thoracic aorta is normal in course and caliber without aneurysm or dissection. Pulmonary arteries are adequately opacified without acute or chronic filling defects. Abdominal aorta is normal in course and caliber without aneurysm. Pelvic arteries are patent without aneurysm or occlusion. Chest: The heart is normal in size. There is no pericardial effusion. Intrathoracic lymph nodes are not enlarged. There is no pleural effusion, pleural thickening or pneumothorax. Central airways are patent. There is bibasilar atelectasis. Abdomen: Liver is severely cirrhotic in morphology. There is no biliary dilatation. Gallbladder is normal in appearance. Stomach is grossly distended with fluid and food material. There is mild diffuse gastric wall thickening. There are multiple paraesophageal varices distally. The pancreas and spleen are normal in appearance. 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 Adrenal glands are normal. There is no free air. There is no retroperitoneal adenopathy. Pelvis: There is extensive thickening of the colon, most severe in its ascending portion. Urinary bladder is unremarkable. There is no free fluid. There is a right inguinal hernia containing short segment of small bowel without obstruction. Appendix is not well seen. Skeleton: There are no acute osseous findings. No suspicious bony lesions. IMPRESSION: Extensive infectious or inflammatory colitis. Hepatic cirrhosis with paraesophageal varices. Small bowel containing right inguinal hernia without definite bowel obstruction. Electronically signed by: Piotr Beth MD 12/09/2023 11:18 PM. 23:53 ED course: Patient has history of bilateral lower extremity swelling, hepatitis B, sp4 hepatitis C, liver cirrhosis, ascites, history of inguinal hernia on the right, constipation. Patient was last admitted here 08/16/2023 for edema, patient's medications include Tylenol with codeine, furosemide 40 mg daily, spironolactone 100 mg daily, also there is history of very poor IV access peripherally. . 12/09 00:05 ED course: On my exam patient is delirious he is not understanding questions and mental sp4 status exam reveals poor understanding on the patient's part. Patient screams about leaving him alone. At this time patient is not capable of making his medical decisions. Clinical Asst recommended 1 unit blood transfusion and transfer out for possible TIPS procedure, also for management of variceal bleeding. At this hospital is apparently not able to manage variceal bleeding and not equipped to do TIPS procedure. . 00:12 ED course: CT revealed - IMPRESSION: Extensive infectious or inflammatory colitis. sp4 Hepatic cirrhosis with paraesophageal varices. Small bowel containing right inguinal hernia without definite bowel obstruction.. 00:44 ED course: Patient became more and more confused poorly cooperative and at times sp4 combative. Patient to be given IV Valium. . And patient turns out to be positive for crystal meth which explains he is obtunded state. . 00:45 ED course: . [facility] 12/08 21:59 Order name: Type And Screen [facility] 12/08 21:58 Order name: Basic Metabolic Panel; Complete Time: 00:44 [facility] 12/08 21:58 Order name: CBC with Diff; Complete Time: 23:33 [facility] 12/08 21:58 Order name: LFT's; Complete Time: 00:44 [facility] 12/08 21:58 Order name: Magnesium; Complete Time: 00:44 [facility] 12/08 21:58 Order name: NT PRO-BNP; Complete Time: 00:44 [facility] 12/08 21:58 Order name: PT-INR; Complete Time: 23:33 [facility] 12/08 21:58 Order name: Troponin HS; Complete Time: 00:44 [facility] 12/08 21:59 Order name: Lipase; Complete Time: 00:44 [facility] 12/08 22:26 Order name: Alcohol Level; Complete Time: 00:44 [facility] 12/08 22:26 Order name: Urine Drug Screen; Complete Time: 00:44 [facility] 12/09 00:13 Order name: AMMONIA; Complete Time: 01:45 [facility] 12/09 00:25 Order name: ABO/RH no charge; Complete Time: 00:44 [facility]ND 12/09 00:25 Order name: Packed RBC Leukored [facility] 12/08 21:58 Order name: XRAY Chest (1 view) [facility] 12/08 21:58 Order name: CT Chest, Abdomen, Pelvis - W/Contrast [facility] 12/08 21:58 Order name: Cardiac monitoring; Complete Time: 22:12 [facility] 12/08 21:58 Order name: EKG - Nurse/Tech; Complete Time: 23:19 [facility] 12/08 21:58 Order name: IV Saline Lock; Complete Time: 22:12 [facility] 12/08 21:58 Order name: Labs collected and sent; Complete Time: 22:35 [facility] 12/08 21:58 Order name: O2 Per Protocol; Complete Time: 22:12 [facility] 12/08 21:58 Order name: O2 Sat Monitoring; Complete Time: 22:12 [facility] 12/08 21:58 Order name: Central Line Kit; Complete Time: 22:12 [facility] 12/08 22:27 Order name: Rizzo; Complete Time: 23:03 sp4 12/09 02:04 Order name: Transfuse; Complete Time: 02:04 jb4 EC/19 23:42 Rate is 90 beats/min. Rhythm is regular. QRS [place] is Normal. MA interval is normal. QRS sp4 interval is normal. QT interval is prolonged. No Q waves. T waves are Normal. No ST changes noted. Clinical impression: No evidence of ischemia. Interpreted by me. Administered Medications: 22:15 Drug: morphine IVP or IV 4 mg IVP once over 4 mins {Note: administered by RN. Ivan} 4 Route: IVP; Infused Over: 4 mins; Site: left jugular; 22:15 Drug: Ondansetron IVP 4 mg IVP once; over 2 minutes {Note: Administered by Ivan BOBO} 4 Route: IVP; Site: left jugular; 22:44 Not Given (Other Intervention Used): Rocephin - rocephin (ceftriaxone)1 grams IVPB once [facility] over 30 mins; (mix in 50 mL NS) 22:58 Drug: Pantoprazole IVP 80 mg IVP once Route: IVP; Site: left femoral; [facility] 23:30 Follow up: Response: No adverse reaction [facility] 22:58 Drug: Pantoprazole IV 8 mg/hr IV at 25 ml/hr continuous; (Standard dilution is 80 mg in jb4 250 mL NS) Route: IV; Rate: 25 ml/hr; Site: left femoral; 12/09 03:07 Follow up: IV Status: Infusion continued upon transfer [facility] 12/08 22:58 Drug: Rocephin IV 1 grams IV at calculated rate once; Given slow IV push per pharmacy [facility] instructions Route: IV; Rate: calculated rate; Site: left femoral; 23:30 Follow up: Response: No adverse reaction; IV Status: Completed infusion [facility] 23:00 Drug: NS 0.9% IV 1000 ml IV at 1 bolus Per protocol; 1000 mL bolus Route: IV; Rate: 1 jb4 bolus; Site: left femoral; 12/09 00:00 Follow up: Response: No adverse reaction; IV Status: Completed infusion; IV Intake: jb4 1000ml 00:22 Drug: Diazepam IVP 5 mg IVP once Route: IVP; Site: left femoral; [facility] 03:07 Follow up: Response: No adverse reaction jb4 00:33 Drug: Octreotide Infusion (50 mcg/hr) - (Octreotide IV 500 mcg, NS 0.9% IV 500 ml) IV jb4 at 50 ml/hr continuous Route: IV; Rate: 50 ml/hr; Site: left femoral; 03:07 Follow up: IV Status: Infusion continued upon transfer jb4 00:45 Drug: NS 0.9% IV 1000 ml IV at 125 ml/hr continuous Route: IV; Rate: 125 ml/hr; Site: jb4 left femoral; 03:08 Follow up: Response: No adverse reaction; IV Status: Infusion continued upon transfer jb4 02:04 Drug: Albumin IVPB 25 grams 100 ml IVPB once; (Note: Albumin 25% concentration) Volume: jb4 100 ml; Route: IVPB; Site: left femoral; 03:06 Follow up: Response: No adverse reaction; IV Status: Completed infusion jb4 03:06 Drug: D10 in Water IVP 250 ml IVP once Route: IVP; Site: left jugular; jb4 18:01 Not Given (Hemodynamic Parameters; medication returned to pyxis): norepinephrine0.1 jb4 mcg/kg/min IV at calculated rate See Administration Instructions; (Standard concentration 4 mg / 250 mL D5W); Recommended max rate 3 mcg/kg/min; Titrate 0.05 mcg/kg/min as often as every 5 minutes to achieve goal (see titration policy); Goal parameter MAP greater than 65 mmHg. Disposition Summary: 12/09/23 23:47 Transfer Ordered Notes: Transfer Location: [facility] sp4 Reason: Higher level of care sp4 Condition: Stable sp4 Problem: new sp4 Symptoms: have improved sp4 Accepting Physician: [facility]'s umbrella mender(12/10/23 03:12) jb4 Diagnosis - GI Bleed/ Gastrointestinal hemorrhage, unspecified sp4 - Esophageal varices with bleeding sp4 - Syncope and collapse, liver cirrhosis, esophageal varices, upper GI bleed, acute sp4 anemia, syncope and collapse. Forms: - Medication Reconciliation Form sp4 - SBAR form sp4 Critical care time excluding procedures: 12/08 23:45 Critical care time: Bedside Care: 36 minutes, Consultation: 12 minutes, Family sp4 Intervention: 12 minutes. Total time: 60 minutes Signatures: Dispatcher [employer] EDMS Arjun Allison, RN RN jb4 Marshall Dutta MD MD sp4 Corrections: (The following items were deleted from the chart) 21:58 21:58 Chest Single View+RAD.RAD.BRZ ordered. EDMS EDMS 22: 22:26 ETHANOL+C.LAB.BRZ ordered. EDMS EDMS 22: 22:26 URINE DRUG SCREEN+UC.LAB.BRZ ordered. EDMS EDMS 12/09 01:06 00:26 PACKED RBC LEUKORED+BB.LAB.BRZ ordered. EDMS EDMS : 00:27 ABO/RH typing ordered. EDMS EDMS 01: 00:27 Antibody Screen ordered. EDMS EDMS 03:12 12/08 23:47 [facility] umbrella mender sp4 jb4
--- NOTE | 2023-12-10 00:25 | ER ---
Nurse's Notes [facility] Name: Dennis Nova Age: 53 yrs Sex: Male : 1970 Arrival Date: 12/09/2023 Time: 21:54 Bed 4 Private MD: Diagnosis: GI Bleed/ Gastrointestinal hemorrhage, unspecified;Esophageal varices with bleeding;Syncope and collapse, liver cirrhosis, esophageal varices, upper GI bleed, acute anemia, syncope and collapse. Presentation: 12/08 22:00 Chief complaint: EMS states: Pt recently had hernia repair surgery. Pt tried to lift a jb4 bike, vomited dark red blood and had a seizure. Was initially unresponsive to painful stimuli. Is now awake and responding. Vomited 200-300cc of dark red blood on scene. Coronavirus screen: At this time, the client does not indicate any symptoms associated with coronavirus-19. Ebola Screen: No symptoms or risks identified at this time. Initial Sepsis Screen: Does the patient meet any 2 criteria? HR > 90 bpm. Yes Does the patient have a suspected source of infection? No. Patient's initial sepsis screen is negative. Risk Assessment: Do you want to hurt yourself or someone else? Patient reports no desire to harm self or others. Onset of symptoms was December 09, 2023. Transition of care: patient was not received from another setting of care. 22:00 Method Of Arrival: [facility] jb4 22:00 Acuity: VINH 2 jb4 Historical: - Allergies: 22:03 No Known Allergies; jb4 - PMHx: 22:03 Hepatitis; jb4 - PSHx: 22:03 hernia repair; jb4 - Immunization history:: Adult Immunizations unknown. - Infectious Disease History:: Denies. - Family history:: not pertinent. Screenin:10 [facility] ED Fall Risk Assessment (Adult) History of falling in the last 3 months, jb4 including since admission Yes- single mechanical fall (1 pt) Confusion or Disorientation Yes (5 pts) Intoxicated or Sedated Yes (3 pts) Impaired Gait Yes (1 pt) Mobility Assist Device Used No (0 pt) Altered Elimination Yes (1 pt) Score/Fall Risk Level 3 or more points = High Risk Oriented to surroundings, Maintained a safe environment. Abuse screen: Denies injuries from another. Nutritional screening: No deficits noted. Tuberculosis screening: No symptoms or risk factors identified. Assessment: 22:04 General: Appears distressed, uncomfortable, ill, Behavior is cooperative, drowsy. Pain: jb4 Complains of pain in abdomen and pelvis Pain does not radiate. Pain currently is 8 out of 10 on a pain scale. Neuro: Level of Consciousness is awake, lethargic, Oriented to person, place, time, situation. Cardiovascular: Patient's skin is warm and dry. Respiratory: Airway is patent Respiratory effort is even, unlabored, Respiratory pattern is regular, symmetrical. GI: Abdomen is distended, Reports lower abdominal pain, vomiting blood. : No signs and/or symptoms were reported regarding the genitourinary system. EENT: No signs and/or symptoms were reported regarding the EENT system. Derm: Skin is intact, Skin is dry, Skin is pale, Skin temperature is cool. Musculoskeletal: Circulation, motion, and sensation intact. Range of motion: intact in all extremities. 23:00 Reassessment: Pt noted to be resting in bed with eyes closed, continues to be jb4 tachycardic. Is agitated and responds aggressively towards staff when stimulated. 23:58 Reassessment: Pt refused blood products. When asked why he was refusing pt states jb4 "Because! I said I don't want it!" re-evaluated pt's level of orientation. Pt is A\\T\\Ox3. explained to the pt that the blood was being given due to his bleeding. Pt states "I know I was bleeding, I don't want blood.". 23:58 Neuro: Oriented to person, place, situation, disoriented to year. Thinks its 1923. jb4 12/09 00:20 Reassessment: ER physician at bedside, trying to explain reason for blood. Pt is jb4 uncooperative. Is not answering questions appropriately. This nurse went back into the room to try and question pt again. Pt is uncooperative, Responding inappropriately. Consulted house sitter on situation. mill platform supervisor in agreement pt is altered. 00:30 Reassessment: Instructed to continue with blood transfusion due to pt being altered and jb4 unable to make decisions for himself per ER physician. 01:30 Reassessment: Pt resting in bed with eyes closed, respirations are snoring, unlabored jb4 with no s/s of distress or pain noted. 02:30 Reassessment: Patient appears in no apparent distress at this time. No changes from jb4 previously documented assessment. Patient and/or family updated on plan of care and expected duration. Pain level reassessed. 02:45 Reassessment: Blood transfusion completed. Pt continues to rest in bed with eyes jb4 closed, intermittent snoring respirations. Pt reaching at physical stimuli when touched. Protonix, NS, Octreotide, and albumin infusing to their ports in central line without issue. Central line site is clean, dry, and intact. 03:09 Reassessment: Pt noted to be diaphoretic, BGL 79, provider notified, see MAR. Pt jb4 transferred out by [facility]. IV and central line access remain clean, dry, and intact. Infusions continue without issue. Vital Signs: 12/08 22:00 BP 102 / 89; Pulse 102; Resp 20; Temp 98.5(O); Pulse Ox 97% on NC; Weight 83.91 kg (M); jb4 23:23 BP 127 / 93; Pulse 93; Resp 13; Pulse Ox 100% on 2 lpm NC; jb4 12/09 00:45 BP 121 / 74; Pulse 123; Resp 20; Pulse Ox 100% on 2 lpm NC; jb4 01:30 BP 104 / 68; Pulse 125; Resp 19; Temp 98.5(O); Pulse Ox 100% on 2 lpm NC; jb4 02:45 BP 145 / 75; Pulse 123; Resp 20; Pulse Ox 98% on 2 lpm NC; jb4 Elvi Coma Score: 12/08 22:35 Eye Response: spontaneous(4). Motor Response: obeys commands(6). Verbal Response: sp4 confused(4). Total: 14. ED Course: 21:55 Patient arrived in ED. jj6 21:57 Marshall Dutta MD is Attending Physician. sp4 22:03 Triage completed. jb4 22:03 Arm band placed on right wrist. jb4 22:06 Inserted saline lock: 20 gauge in left EJ, using aseptic technique. ,using aseptic jb4 technique. performed by Dr. Dutta. 22:10 Patient has correct armband on for positive identification. Bed in low position. Call jb4 light in reach. Side rails up X 1. Provided Education on: plan of care. 22:30 Assisted provider with central line placement. Set up central line tray. Triple lumen jb4 line placed in left femoral. Line placed by Marshall Dutta MD Placement verified by blood return, Dressed with Tegaderm, Blood was collected. Patient tolerated well. 22:38 CT Chest, Abdomen, Pelvis - W/Contrast In Process Unspecified. EDMS 22:50 XRAY Chest (1 view) In Process Unspecified. EDMS 23:00 Rizzo cath inserted, using sterile technique, 16 Fr., by ky, balloon inflated, to jb4 gravity drainage, urine specimen collected. 23:50 initiated transfer with [facility] \\Ewa\\ [facility]. kmf 12/09 00:05 doc to doc. kmf 00:25 pt accepted pending bed. kmf 01:26 called armida for a bed update. kmf 01:34 pt was accepted to [place] [id number] bed [id number]. Accepting Joseluis Rust\\0015. Admin kmf approval given by Eliazar Roberson\\ 0134. number for nurse to nurse report [phone]. Faxed facesheet. [facility] to transfer pt. 01:35 Arjun Allison, DIANDRA is Primary Nurse. jb4 03:12 No provider procedures requiring assistance completed. Patient transferred, IV remains jb4 in place. Administered Medications: 12/08 22:15 Drug: morphine IVP or IV 4 mg IVP once over 4 mins {Note: administered by DIANDRA Love.} jb4 Route: IVP; Infused Over: 4 mins; Site: left jugular; 22:15 Drug: Ondansetron IVP 4 mg IVP once; over 2 minutes {Note: Administered by Ivan JIM.} jb4 Route: IVP; Site: left jugular; 22:44 Not Given (Other Intervention Used): Rocephin - rocephin (ceftriaxone)1 grams IVPB once jb4 over 30 mins; (mix in 50 mL NS) 22:58 Drug: Pantoprazole IVP 80 mg IVP once Route: IVP; Site: left femoral; jb4 23:30 Follow up: Response: No adverse reaction jb4 22:58 Drug: Pantoprazole IV 8 mg/hr IV at 25 ml/hr continuous; (Standard dilution is 80 mg in jb4 250 mL NS) Route: IV; Rate: 25 ml/hr; Site: left femoral; 12/09 03:07 Follow up: IV Status: Infusion continued upon transfer jb4 12/08 22:58 Drug: Rocephin IV 1 grams IV at calculated rate once; Given slow IV push per pharmacy jb4 instructions Route: IV; Rate: calculated rate; Site: left femoral; 23:30 Follow up: Response: No adverse reaction; IV Status: Completed infusion 4 23:00 Drug: NS 0.9% IV 1000 ml IV at 1 bolus Per protocol; 1000 mL bolus Route: IV; Rate: 1 jb4 bolus; Site: left femoral; 12/09 00:00 Follow up: Response: No adverse reaction; IV Status: Completed infusion; IV Intake: jb4 1000ml 00:22 Drug: Diazepam IVP 5 mg IVP once Route: IVP; Site: left femoral; [facility] 03:07 Follow up: Response: No adverse reaction [facility] 00:33 Drug: Octreotide Infusion (50 mcg/hr) - (Octreotide IV 500 mcg, NS 0.9% IV 500 ml) IV jb4 at 50 ml/hr continuous Route: IV; Rate: 50 ml/hr; Site: left femoral; 03:07 Follow up: IV Status: Infusion continued upon transfer jb4 00:45 Drug: NS 0.9% IV 1000 ml IV at 125 ml/hr continuous Route: IV; Rate: 125 ml/hr; Site: [facility] left femoral; 03:08 Follow up: Response: No adverse reaction; IV Status: Infusion continued upon transfer jb4 02:04 Drug: Albumin IVPB 25 grams 100 ml IVPB once; (Note: Albumin 25% concentration) Volume: jb4 100 ml; Route: IVPB; Site: left femoral; 03:06 Follow up: Response: No adverse reaction; IV Status: Completed infusion jb4 03:06 Drug: D10 in Water IVP 250 ml IVP once Route: IVP; Site: left jugular; 4 18:01 Not Given (Hemodynamic Parameters; medication returned to xis): norepinephrine0.1 jb4 mcg/kg/min IV at calculated rate See Administration Instructions; (Standard concentration 4 mg / 250 mL D5W); Recommended max rate 3 mcg/kg/min; Titrate 0.05 mcg/kg/min as often as every 5 minutes to achieve goal (see titration policy); Goal parameter MAP greater than 65 mmHg. Medication: 03:09 VIS not applicable for this client. jb4 Intake: 00:00 IV: 1000ml; Total: 1000ml. jb4 Outcome: 12/08 23:47 ER care complete, transfer ordered by . sp4 12/09 03:12 Patient left the ED. jb4 05:07 Transferred by [facility]. [place] [facility] [facility] [place] jb4 completed. X-rays sent w/ patient. 05:07 Condition: stable Signatures: Dispatcher [employer] EDMS Arjun Allison, RN RN jb4 Brittny Martin Sergey, MD MD sp4 Joyce Huff [facility] Ranjit Cr, RN RN rg5 Corrections: (The following items were deleted from the chart) 12/08 22:06 22:06 Inserted saline lock: 20 gauge in left EJ, using aseptic technique. jb4 jb4 22:33 22:16 Ranjit Cr, RN is Primary Nurse. rg5 rg5 23:21 22:15 NS 0.9% IV 1000 ml IV at 1 bolus in left jugular; Administered by DIANDRA Love jb4 jb4 12/09 00:44 12/08 23:58 Reassessment: Pt refused blood products. When asked why he was refusing pt jb4 states "Because! I said I don't want it!" re-evaluated pt's level of orientation. Pt is A\\T\\Ox3. explained to the pt that the blood was being given due to his bleeding. Pt states "I know I was bleeding, I don't want blood." jb4 12/09 05:07 03:09 Reassessment: Patient appears in no apparent distress at this time. No changes jb4 from previously documented assessment. Patient and/or family updated on plan of care and expected duration. Pain level reassessed. Pt noted to be diaphoretic, BGL 79, provider notified, see MAR. jb4 17:21 12/08 21:00 Patient has correct armband on for positive identification. Bed in low jb4 position. Call light in reach. Side rails up X 1. jb4 12/09 17:21 12/08 21:00 Provided Education on: plan of care. jb4 jb4 12/09 16:12/08 21:00 [facility] ED Fall Risk Assessment (Adult) History of falling in the last 3 jb4 months, including since admission Yes- single mechanical fall (1 pt) Confusion or Disorientation Yes (5 pts) Intoxicated or Sedated Yes (3 pts) Impaired Gait Yes (1 pt) Mobility Assist Device Used No (0 pt) Altered Elimination Yes (1 pt) Score/Fall Risk Level 3 or more points = High Risk Oriented to surroundings, Maintained a safe environment, [facility] 12/09 16:12/08 21:00 Abuse screen: Denies injuries from another. [place] [id number] 12/09 16:12/08 21:00 Nutritional screening: No deficits noted. [place] [id number] 12/09 16:12/08 21:00 Tuberculosis screening: No symptoms or risk factors identified. [place] [id number] 12/09 03:09 Reassessment: Pt noted to be diaphoretic, BGL 79, provider notified, see MAR. [place] [id number] 02:45 Reassessment: Blood transfusion completed. Pt continues to rest in bed with eyes jb4 closed, intermittent snoring respirations. Pt reaching at physical stimuli when touched. [facility] 12/08 23:23 BP 127 / 93; Pulse 93bpm; Resp 13bpm; Pulse Ox 100% Nasal Cannula; [facility]
[2023-12-10] MEDS ORDERED: NA CHLORIDE 0.9% 1,000 ML ONE (00:34)
[2023-12-10] MEDS ORDERED: NA CHLORIDE 0.9% 100 ML ONE (00:35)
[2023-12-10] MEDS ORDERED: ALBUMIN HUMAN 25% 100 ML IV ONE (01:52)
[2023-12-10] MEDS ORDERED: NOREPINEPHRINE BITARTRATE/D5W 0 MG/0 ML BAG IV ONE (02:17)
[2023-12-10] MEDS ORDERED: D10W 250 ML IV ONE (03:02)
[2023-12-10 03:19] VITALS: TEMP 98.5
[2023-12-10 03:35] VITALS: BP 145/75; O2SAT 98
--- NOTE | 2023-12-10 11:55 | RAD REPORT ---
EXAM DESCRIPTION: RAD - Chest Single View - 12/09/2023 10:48 pm CLINICAL HISTORY: ABDOMINAL DISTENTION COMPARISON: None. TECHNIQUE: XR CHEST 1 VIEW 12/09/2023 9:58 PM CDT FINDINGS: Cardiac silhouette is normal in size. Lungs are clear without consolidation, atelectasis, mass or edema. There is no pleural effusion. There is no pneumothorax. There are no acute osseous fin dings. IMPRESSION: Clear lungs. Electronically signed by: Piotr Beth MD 12/09/2023 11:00 PM CDT RP Due to temporary technical issues with the PACS/Fluency reporting system, reports are being signed by the in house radiologist without review as a courtesy to ensure prompt reporting. The interpreting r adiologist is fully responsible for the content of the report.
--- NOTE | 2023-12-10 13:57 | RAD REPORT ---
EXAM DESCRIPTION: CT - Chest Abdomen Pelvis W Cont - 12/10/2023 6:55 am CLINICAL HISTORY: ABDOMINAL DISTENTION COMPARISON: None. TECHNIQUE: CT CHEST ABDOMEN PELVIS WITH IV CONTRAST on 12/09/2023 9:58 PM CDT. MIPS reconstructions w ere generated. This exam was performed according to our departmental dose-optimization program, which includes autom ated exposure control, adjustment of the mA and/or kV according to patient size and/or use of iterati ve reconstruction technique. FINDINGS: Vascular: Thoracic aorta is normal in course and caliber without aneurysm or dissection. P ulmonary arteries are adequately opacified without acute or chronic filling defects. Abdominal aorta is normal in course and caliber without aneurysm. Pelvic arteries are patent without aneurysm or occl usion. Chest: The heart is normal in size. There is no pericardial effusion. Intrathoracic lymph nodes are n ot enlarged. There is no pleural effusion, pleural thickening or pneumothorax. Central airways are patent. There i s bibasilar atelectasis. Abdomen: Liver is severely cirrhotic in morphology. There is no biliary dilatation. Gallbladder is no rmal in appearance. Stomach is grossly distended with fluid and food material. There is mild diffuse gastric wall thickening. There are multiple paraesophageal varices distally. The pancreas and spleen are normal in appearance. 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 Adrenal glands a re normal. There is no free air. There is no retroperitoneal adenopathy. Pelvis: There is extensive thickening of the colon, most severe in its ascending portion. Urinary lindsey dder is unremarkable. There is no free fluid. There is a right inguinal hernia containing short segme nt of small bowel without obstruction. Appendix is not well seen. Skeleton: There are no acute osseous findings. No suspicious bony lesions. IMPRESSION: Extensive infectious or inflammatory colitis. Hepatic cirrhosis with paraesophageal varices. Small bowel containing right inguinal hernia without definite bowel obstruction. Electronically signed by: Piotr Beth MD 12/09/2023 11:18 PM CDT RP Due to temporary technical issues with the PACS/Fluency reporting system, reports are being signed by the in house radiologist without review as a courtesy to ensure prompt reporting. The interpreting r adiologist is fully responsible for the content of the report.
--- NOTE | 2023-12-13 13:35 | EKG ---
Test Date: 2023-12-09 Test Time: 22:49:17 Doctor Chiropractic: RRCatrachito MEASUREMENT RESULTS: Intervals: Rate: 90 FL: 124 QRSD: 94 QT: 396 QTc: 484 [place]: P: 50 FL: 124 QRS: 70 T: 46 INTERPRETIVE STATEMENTS: Normal sinus rhythm Prolonged QT Abnormal ECG Compared to ECG 08/16/2023 19:15:13 Prolonged QT interval now present Short FL interval no longer present Right-axis deviation no longer present ST (T wave) deviation no longer present Electronically Signed On 12-13-23 13:29:34 CDT by Ranjit Mccarty
== END 2023-12-10 03:12 | disposition short-term general hospital (02) ==
LOC: ER 21:54
PROC: 30233N1 Transfusion of Nonautologous Red Blood Cells into Peripheral Vein, Percutaneous Approach (ICD-10-PCS; principal; 2023-12-10)
PROC: 06HN33Z Insertion of Infusion Device into Left Femoral Vein, Percutaneous Approach (ICD-10-PCS; 2023-12-10)
DX: I85.01 Esophageal varices with bleeding (principal); D64.9 Anemia, unspecified; K74.60 Unspecified cirrhosis of liver; R55 Syncope and collapse; Z98.890 Other specified postprocedural states
CPT/HCPCS: 93005; 85025; 80048; 36415; 82140; 86900; 83735; 86850; 85610; 86901; 82947; 80076; 86920; 84484; 83690; 83880; 80307; 71260; 74177; 71045; 51702; 99285; 82077; 36430; 36556; Q9967; J2354; C9113; J3360; J2405; P9016; P9047; J7050; J7040; J7030 ×2; J0696